=== PATIENT | male | born 1965 | race Caucasian/White ===

== ENCOUNTER 2018-12-11 08:23 | Outpatient (CLI) | payer MEDICARE ==
--- NOTE | 2018-12-11 13:20 | Nuclear Medicine Report ---
PARATHYROID SCAN HISTORY: Hypercalcemia, hyperparathyroidism COMPARISON: None TECHNIQUE: Following the intravenous administration of [id number], early and delayed anterior i mages of the neck and upper thorax were acquired. RADIOPHARMACEUTICAL: 20.0 mCi of [id number] FINDINGS: EARLY IMAGING: Diffuse symmetric physiologic thyroid activity. DELAYED IMAGING: Near complete symmetric washout from the normal thyroid tissue. No abnormal thoraci c activity. Additional Findings: None. IMPRESSION: 1. No significant abnormality. Signer Name: Aleksander Deng Jr, MD Signed: 12/11/2018 1:15 PM Workstation Name: [id number]
== END 2018-12-11 08:24 | disposition home or self-care (01) ==
LOC: NM 08:23
PROVIDERS: ATTEND Internal Medicine Nephrology
DX: E21.3 Hyperparathyroidism, unspecified (principal)
CPT/HCPCS: 78070; A9500

== ENCOUNTER 2021-06-01 11:37 | Inpatient (IN) | payer MEDICARE ==
[2021-06-01] MEDS ORDERED: CEFEPIME/NS 2 GM/100 ML 2 GM/100 ML BAG IV ONE (12:17)
--- NOTE | 2021-06-01 12:35 | Emergency Department Report ---
HPI - General Chief Complaint: Fever Time Seen by Provider: 06/01/21 12:12 - HPI HPI: 56-year-old male with history of hypertension, insulin-dependent diabetes mellitus, complete bilateral blindness, ESRD status post renal transplant 5 years ago on immunosuppression with mycophenolate 250 mg twice daily, prednisone 5 mg daily, and tacrolimus 3 mg in the morning and 4 mg in the afternoon presents with his son due to 2 days of urinary symptoms including dysuria and hesitancy as well as generalized weakness and fever/chills. He has also been having some mild lower abdominal pain as well. According to the the patient's son, he had a fever of 103 last night. The patient follows with Dr. Cole at [facility]. Other than the a forementioned symptoms, he denies any associated headache, back pain, chest pain, shortness of breath, nausea/vomiting , or any other complaints. He is fully vaccinated against COVID-19 and has received his booster. ED Past Medical Hx - Past Medical History Previous Medical History?: Yes Hx Hypertension: Yes Hx Diabetes: Yes Hx Renal Disease: Yes Additional medical history: ESRD s/p renal transplant - Surgical History Past Surgical History?: Yes Additional Surgical History: Renal transplant ED Review of Systems ROS: Stated complaint: FEVER CHILLS Other details as noted in HPI Comment: All other systems reviewed and negative Constitutional: chills, fever, weakness Eyes: denies: eye pain, eye discharge ENT: denies: throat pain, congestion Respiratory: denies: cough, shortness of breath Cardiovascular: denies: chest pain, palpitations Gastrointestinal: abdominal pain. denies: nausea, vomiting, diarrhea Genitourinary: dysuria, frequency, other (hesitancy). denies: hematuria Skin: denies: rash, lesions Neurological: denies: headache, weakness, numbness Physical Exam - Physical Exam Vital Signs: Vital Signs 06/01/21 06/01/21 11:39 12:10 Temperature 99.7 F H 99.5 F Pulse Rate 89 78 Respiratory 18 32 H Rate Blood Pressure 100/50 146/50 [Left] O2 Sat by Pulse 98 99 Oximetry Physical Exam: GENERAL: Well developed and well nourished. No acute distress HEAD: Normocephalic. No obvious signs of trauma. ENT: Dry mucous membranes. EYES: Eyes are only partially open. NECK: Supple. Full ROM is intact. Trachea is midline. LUNGS: Nonlabored breathing. Equal chest rise bilaterally. Clear to auscultation bilaterally. CARDIOVASCULAR: Regular rate and rhythm. No murmurs or rubs. VASCULAR: Cap refill < 2 seconds ABDOMEN: Abdomen is soft and nondistended. There is tenderness to palpation in the right lower quadrant of the abdomen without guarding or rebound tenderness. SKIN: Skin is warm and dry NEURO: Patient is awake, alert, and oriented. No facial asymmetry. No focal deficits. Normal motor and sensory exam throughout. Normal speech. MUSCULOSKELETAL: No obvious deformities. No significant tenderness. Normal ROM throughout. BACK/SPINE: No costovertebral angle tenderness. ED Course Vital Signs 06/01/21 06/01/21 11:39 12:10 Temperature 99.7 F H 99.5 F Pulse Rate 89 78 Respiratory 18 32 H Rate Blood Pressure 100/50 146/50 [Left] O2 Sat by Pulse 98 99 Oximetry ED Medical Decision Making - Lab Data Result diagrams: 06/01/21 12:53 06/01/21 12:53 Lab Results 06/01/21 06/01/21 06/01/21 Range/Units 12:35 12:53 12:53 WBC 10.2 (4.5-11.0) K/mm3 RBC 4.16 (3.65-5.03) M/mm3 Hgb 12.5 (11.8-15.2) gm/dl Hct 38.3 (35.5-45.6) % MCV 92 (84-94) fl MCH 30 (28-32) pg MCHC 33 (32-34) % RDW 13.8 (13.2-15.2) % Plt Count 74 L (140-440) K/mm3 Sodium (137-145) mmol/L Potassium (3.6-5.0) mmol/L Chloride (98-107) mmol/L Carbon Dioxide (22-30) mmol/L Anion Gap mmol/L BUN (9-20) mg/dL Creatinine (0.8-1.3) mg/dL Estimated GFR ml/min BUN/Creatinine Ratio % Glucose (75-100) mg/dL POC Glucose 99 (70-105) mg/dL Lactic Acid 2.40 H* (0.7-2.0) mmol/L Calcium (8.4-10.2) mg/dL Magnesium (1.7-2.3) mg/dL Total Bilirubin (0.1-1.2) mg/dL Direct Bilirubin (0-0.2) mg/dL Indirect Bilirubin mg/dL AST (5-40) units/L ALT (7-56) units/L Alkaline Phosphatase (35-129) units/L Troponin T (0.00-0.029) ng/mL Total Protein (6.3-8.2) g/dL Albumin (3.9-5) g/dL Albumin/Globulin Ratio % Lipase (13-60) units/L Urine Color (Yellow) Urine Turbidity (Clear) Urine pH (5.0-7.0) Ur Specific [place] (1.003-1.030) Urine Protein (Negative) mg/dL Urine Glucose (UA) (Negative) mg/dL Urine Ketones (Negative) mg/dL Urine Blood (Negative) Urine Nitrite (Negative) Urine Bilirubin (Negative) Urine Urobilinogen (<2.0) mg/dL Ur Leukocyte Esterase (Negative) Urine WBC (Auto) (0.0-6.0) /HPF Urine RBC (Auto) (0.0-6.0) /HPF U Epithel Cells (Auto) (0-13.0) /HPF Urine Bacteria (Auto) (Negative) /HPF Urine WBC Clumps /HPF Ur Transition Epith Cell /HPF Urine Mucus /HPF 06/01/21 06/01/21 06/01/21 Range/Units 12:53 12:53 14:40 WBC (4.5-11.0) K/mm3 RBC (3.65-5.03) M/mm3 Hgb (11.8-15.2) gm/dl Hct (35.5-45.6) % MCV (84-94) fl MCH (28-32) pg MCHC (32-34) % RDW (13.2-15.2) % Plt Count (140-440) K/mm3 Sodium 129 L (137-145) mmol/L Potassium 5.4 H (3.6-5.0) mmol/L Chloride 96.1 L (98-107) mmol/L Carbon Dioxide 18 L (22-30) mmol/L Anion Gap 20 mmol/L BUN 58 H (9-20) mg/dL Creatinine 3.8 H (0.8-1.3) mg/dL Estimated GFR 17 ml/min BUN/Creatinine Ratio 15 % Glucose 118 H (75-100) mg/dL POC Glucose (70-105) mg/dL Lactic Acid 2.00 (0.7-2.0) mmol/L Calcium 7.8 L (8.4-10.2) mg/dL Magnesium 1.30 L (1.7-2.3) mg/dL Total Bilirubin 0.70 (0.1-1.2) mg/dL Direct Bilirubin 0.2 (0-0.2) mg/dL Indirect Bilirubin 0.5 mg/dL AST 16 (5-40) units/L ALT 15 (7-56) units/L Alkaline Phosphatase 98 (35-129) units/L Troponin T 0.021 (0.00-0.029) ng/mL Total Protein 5.7 L (6.3-8.2) g/dL Albumin 3.3 L (3.9-5) g/dL Albumin/Globulin Ratio 1.4 % Lipase 6 L (13-60) units/L Urine Color (Yellow) Urine Turbidity (Clear) Urine pH (5.0-7.0) Ur Specific [place] (1.003-1.030) Urine Protein (Negative) mg/dL Urine Glucose (UA) (Negative) mg/dL Urine Ketones (Negative) mg/dL Urine Blood (Negative) Urine Nitrite (Negative) Urine Bilirubin (Negative) Urine Urobilinogen (<2.0) mg/dL Ur Leukocyte Esterase (Negative) Urine WBC (Auto) (0.0-6.0) /HPF Urine RBC (Auto) (0.0-6.0) /HPF U Epithel Cells (Auto) (0-13.0) /HPF Urine Bacteria (Auto) (Negative) /HPF Urine WBC Clumps /HPF Ur Transition Epith Cell /HPF Urine Mucus /HPF 06/01/21 06/01/21 06/01/21 Range/Units 14:40 16:17 Unknown WBC (4.5-11.0) K/mm3 RBC (3.65-5.03) M/mm3 Hgb (11.8-15.2) gm/dl Hct (35.5-45.6) % MCV (84-94) fl MCH (28-32) pg MCHC (32-34) % RDW (13.2-15.2) % Plt Count (140-440) K/mm3 Sodium (137-145) mmol/L Potassium (3.6-5.0) mmol/L Chloride (98-107) mmol/L Carbon Dioxide (22-30) mmol/L Anion Gap mmol/L BUN (9-20) mg/dL Creatinine (0.8-1.3) mg/dL Estimated GFR ml/min BUN/Creatinine Ratio % Glucose (75-100) mg/dL POC Glucose 175 H (70-105) mg/dL Lactic Acid (0.7-2.0) mmol/L Calcium (8.4-10.2) mg/dL Magnesium (1.7-2.3) mg/dL Total Bilirubin (0.1-1.2) mg/dL Direct Bilirubin (0-0.2) mg/dL Indirect Bilirubin mg/dL AST (5-40) units/L ALT (7-56) units/L Alkaline Phosphatase (35-129) units/L Troponin T 0.019 (0.00-0.029) ng/mL Total Protein (6.3-8.2) g/dL Albumin (3.9-5) g/dL Albumin/Globulin Ratio % Lipase (13-60) units/L Urine Color [place] (Yellow) Urine Turbidity Cloudy (Clear) Urine pH 5.0 (5.0-7.0) Ur Specific [place] 1.016 (1.003-1.030) Urine Protein 100 mg/dl (Negative) mg/dL Urine Glucose (UA) 50 (Negative) mg/dL Urine Ketones Neg (Negative) mg/dL Urine Blood Mod (Negative) Urine Nitrite Neg (Negative) Urine Bilirubin Neg (Negative) Urine Urobilinogen < 2.0 (<2.0) mg/dL Ur Leukocyte Esterase Lg (Negative) Urine WBC (Auto) > 182.0 H (0.0-6.0) /HPF Urine RBC (Auto) 24.0 (0.0-6.0) /HPF U Epithel Cells (Auto) 3.0 (0-13.0) /HPF Urine Bacteria (Auto) 1+ (Negative) /HPF Urine WBC Clumps 3+ /HPF Ur Transition Epith Cell 4 /HPF Urine Mucus Few /HPF - Radiology Data Radiology results: report reviewed - Medical Decision Making 56-year-old male with complex medical history including history of renal transplant on immunosuppression presenting with 2 days of urinary symptoms and fever/chills/malaise. On initial assessment he has low-grade fever of 99.7. The remainder of his vital signs are grossly within normal limits. Nonetheless, given his immunosuppressed state, I am concerned for possible sepsis. He has dry mucous membranes on exam and has tenderness to palpation of the right lower quadrant of the abdomen without guarding or rebound. The remainder of his ph ysical exam is grossly within normal limits. The full sepsis order set was initiated with labs and cultures as well as chest x-ray. I will administer broad-spectrum IV cefepime given the patient's immunosuppressed state. We will place a call to the patient's pattern maker programer at [place] to discuss further. 12:55 PM I spoke with Dr. Briceno who is covering for Dr. Cole. He agrees with current work-up with normal sepsis labs and cultures and agrees with IV cefepime treatment. He does come to this hospital and can provide further inpatient consultation once the patient is admitted Chest x-ray shows no acute abnormalities. There is no significant leukocytosis or anemia. However, there is th rombocytopenia with platelets of 74. Chemistry panel reveals several abnormalities including elevated creatinine of 3.8, BUN of 58, potassium of 5.4, and sodium of 129. Magnesium is low at 1.3. Lactate is elevated at 2.4 we will replete the magnesium. We will give 1.5 L of IV fluids and reach out to the patient's pattern maker programer to determine whether this represents new kidney dysfunction or whether this is his baseline At [address] Cole of nephrology. He was able to review the prabha mazariegoshari's past medical records which revealed the patient's baseline creatinine is 1.5. Therefore his current renal function represents acute renal failure. We discussed current management he agrees with what we have done. He will provide further inpatient recommendations. CT of the abdomen pelvis reveals only findings consistent with cystitis. I discussed with the patient and his son the results of the diagnostic studies and the diagnosis of urinary tract infection with cystitis as well as the need for admission for IV antibiotics given his immunosuppressed state. The patient and his son expressed understanding and agreement with this plan of care I spoke with Dr. Tiwari, the on-call hospitalist regarding the case and he accepts the patient for admission will assume care Critical care attestation.: If time is entered above; I have spent that time in minutes in the direct care of this critically ill patient, excluding procedure time. ED Disposition Clinical Impression: Acute renal failure, Sepsis, Urinary tract infection, Hypomagnesemia, Hyponatremia, Immunosuppressed status, Hypokalemia, Cystitis Disposition: 09 ADMITTED INPATIENT Is pt being admited?: Yes
--- NOTE | 2021-06-01 12:45 | XRay Report ---
CHEST 1 VIEW 06/01/2021 12:24 PM INDICATION / CLINICAL INFORMATION: fever/chills. COMPARISON: None available. FINDINGS: SUPPORT DEVICES: None. HEART / MEDIASTINUM: No significant abnormality. LUNGS / PLEURA: No significant pulmonary abnormality. No significant pleural effusion. No pneumothora x. ADDITIONAL FINDINGS: No significant additional findings. IMPRESSION: 1. No acute abnormality of the chest. Signer Name: Anthony Hester MD Signed: 06/01/2021 12:41 PM Workstation Name: [id number]
[2021-06-01] MEDS ORDERED: ACETAMINOPHEN 500 MG TAB PO ONE (12:49)
[2021-06-01 13:22] LABS: Bacteria,Urine 1+ /HPF (Negative); Bilirubin,Urine NEG (Negative); Blood,Urine MOD (Negative); Color,Urine Amber (Yellow); Mucus,Urine FEW /HPF; Urobilinogen,Urine < 2.0 mg/dL (<2.0)
[2021-06-01 13:26] LABS: WBC,Urine > 182.0 /HPF (0.0-6.0)
[2021-06-01 13:42] LABS: Albumin 3.3 g/dL (3.9-5); Bilirubin,Direct 0.2 mg/dL (0-0.2); Calcium 7.8 mg/dL (8.4-10.2)
[2021-06-01 13:50] LABS: Hematocrit 38.3 % (35.5-45.6); Hemoglobin 12.5 gm/dl (11.8-15.2); Mean Corpuscular HGB Conc 33 % (32-34); Mean Corpuscular Volume 92 fl (84-94); Red Blood Count 4.16 M/mm3 (3.65-5.03); Red Cell Distribution Width 13.8 % (13.2-15.2)
[2021-06-01 13:53] LABS: Platelet Count 74 K/mm3 (140-440)
[2021-06-01] MEDS ORDERED: MAGNESIUM SULFATE 2 GM/50 ML BAG IV ONE (13:58)
[2021-06-01] MEDS ORDERED: SODIUM CHLORIDE 0.9% 500 ML 500 ML IV ONE (14:20)
[2021-06-01] MEDS ORDERED: SODIUM CHLORIDE 0.45% 1000 ML 1,000 ML IV SCH (14:30)
--- NOTE | 2021-06-01 14:34 | Cat Scan Report ---
CT abdomen pelvis wo con INDICATION: sepsis, RLQ tenderness. COMPARISON: None TECHNIQUE: Abdominal and pelvic CT exam performed. All CT scans at this location are performed using CT dose reduction for ALARA by means of automated exposure control. FINDINGS: CT ABDOMEN and PELVIS: Lung Bases: No significant abnormality. Liver: No significant abnormality. Biliary: No significant abnormality. Spleen: No significant abnormality. Pancreas: No significant abnormality. Adrenals: No significant abnormality. Kidneys: End-stage renal atrophy. Right lower quadrant kidney transplant with iliac fossa.. No stones . Mild perinephric stranding. Bladder: Circumferential bladder wall thickening. Lymphatics: No lymphadenopathy. Vasculature: Diffuse arterial atherosclerosis likely related to underlying diabetes. Bowel: No significant abnormality. Normal appendix. Pelvis: No significant abnormality. Osseous Structures: No aggressive osseous lesion. Additional Findings: None IMPRESSION: 1. Bladder wall circumferentially thickened. This could be related to cystitis. Correlate with urinal ysis. 2. End-stage [place] renal atrophy with right lower quadrant renal transplant. Mild perinephric strand ing around the transplant is nonspecific and there is no comparison. Signer Name: Elroy Dangelo MD Signed: 06/01/2021 2:30 PM Workstation Name: [id number]
[2021-06-01] MEDS ORDERED: SODIUM CHLORIDE 0.45% 1000 ML IV SOLN IV SCH (15:00)
[2021-06-01] MEDS ORDERED: ONDANSETRON 4 MG/2 ML INJ IV ONE (17:02)
[2021-06-01] MEDS ORDERED: LACTATED RINGERS 1,000 ML IV ONE (17:02)
[2021-06-01 17:28] LABS: Band Neutrophils # (Manual) 2.8 K/mm3; Basophils % (Manual) 0 % (0.0-1.8); Eosinophils % (Manual) 0 % (0.0-4.3); Monocytes % (Manual) 0 % (0.0-7.3); Platelet Estimate Consistent w Auto; RBC Morphology Normal; Total Cells Counted 100
--- NOTE | 2021-06-01 18:28 | History and Physical Report ---
History of Present Illness Date of examination: 06/01/21 Date of admission: June 01, 2021 Chief complaint: High fever since last night History of present illness: 56-year-old Niuean-speaking male with history of hypertension, s/p renal transplant, insulin-dependent diabetes, bilateral blindness. Not on hemodialysis for renal transplant 5 years ago. Patient is on immunosuppressive drugs including mycophenolate and prednisone. Tacrolimus. Comes in for dysuria and hesitancy and fever. Also generalized weakness and fever and chills. Patient also having lower abdominal pain. As per the patient's son patient had a fever of 103 last night. Patient was also febrile while in the emergency room. 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 Patient is fully vaccinated against Covid. And also has received a booster. - Past Medical History --Previous Medical History?: Yes --Hypertension: Yes --Diabetes: Yes --Renal Disease: Yes --Additional medical history: ESRD s/p renal transplant - Surgical History --Past Surgical History?: Yes --Additional Surgical History: Renal transplant -Social history --blind in both eyes --Smoker alcohol - Family history HTN --Review of Systems ROS: Stated complaint: FEVER CHILLS Other details as noted in HPI Comment: All other systems reviewed and negative Constitutional: chills, fever, weakness Eyes: denies: eye pain, eye discharge ENT: denies: throat pain, congestion Respiratory: denies: cough, shortness of breath Cardiovascular: denies: chest pain, palpitations Gastrointestinal: abdominal pain. denies: nausea, vomiting, diarrhea Genitourinary: dysuria, frequency, other (hesitancy). denies: hematuria Skin: denies: rash, lesions Neurological: denies: headache, weakness, numbness Medications and Allergies Allergies Allergy/AdvReac Type Severity Reaction Status Date / Time adhesive tape Allergy Rash Verified 06/01/21 19:02 Active Meds: Active Medications Sodium Chloride (Nacl 0.45% 1000 Ml) 1,000 mls @ 999 mls/hr IV ONCE@1430 DAVID Stop: 06/01/21 20:00 Last Admin: 06/01/21 14:29 Dose: 999 mls/hr Exam - Constitutional Vitals: Temp Pulse Resp BP Pulse Ox 101.8 F H 90 34 H 90/50 96 06/01/21 16:28 06/01/21 16:28 06/01/21 16:28 06/01/21 16:28 06/01/21 16:28 General appearance: Present: no acute distress, well-nourished - EENT Eyes: Present: PERRL ENT: hearing intact, clear oral mucosa - Neck Neck: Present: supple, normal ROM - Respiratory Respiratory effort: normal Respiratory: bilateral: CTA - Cardiovascular Heart rate: 88 Rhythm: regular Heart Sounds: Present: S1 & S2. Absent: rub, click - Extremities Extremities: pulses symmetrical, No edema Peripheral Pulses: within normal limits - Abdominal General gastrointestinal: Present: soft, non-tender, non-distended, normal bowel sounds Male genitourinary: Present: normal - Integumentary Integumentary: Present: clear, warm, dry - Musculoskeletal Musculoskeletal: gait normal, strength equal bilaterally - Psychiatric Psychiatric: appropriate mood/affect, intact judgment & insight - Neurologic Neurologic: CNII-XII intact, moves all extremities HEART Score - HEART Score Troponin: Troponin T 0.019 ng/mL (0.00-0.029) 06/01/21 14:40 Results - Labs CBC & Chem 7: 06/02/21 05:13 06/02/21 05:13 Labs: Laboratory Last Values WBC 10.2 K/mm3 (4.5-11.0) 06/01/21 12:53 RBC 4.16 M/mm3 (3.65-5.03) 06/01/21 12:53 Hgb 12.5 gm/dl (11.8-15.2) 06/01/21 12:53 Hct 38.3 % (35.5-45.6) 06/01/21 12:53 MCV 92 fl (84-94) 06/01/21 12:53 MCH 30 pg (28-32) 06/01/21 12:53 MCHC 33 % (32-34) 06/01/21 12:53 RDW 13.8 % (13.2-15.2) 06/01/21 12:53 Plt Count 74 K/mm3 (140-440) L 06/01/21 12:53 Add Manual Diff Complete 06/01/21 12:53 Total Counted 100 06/01/21 12:53 Seg Neuts % (Manual) 72.0 % (40.0-70.0) H 06/01/21 12:53 Band Neutrophils % 27.0 % 06/01/21 12:53 Lymphocytes % (Manual) 1.0 % (13.4-35.0) L 06/01/21 12:53 Reactive Lymphs % (Man) 0 % 06/01/21 12:53 Monocytes % (Manual) 0 % (0.0-7.3) 06/01/21 12:53 Eosinophils % (Manual) 0 % (0.0-4.3) 06/01/21 12:53 Basophils % (Manual) 0 % (0.0-1.8) 06/01/21 12:53 Metamyelocytes % 0 % 06/01/21 12:53 Myelocytes % 0 % 06/01/21 12:53 Promyelocytes % 0 % 06/01/21 12:53 Blast Cells % 0 % 06/01/21 12:53 Nucleated RBC % Not Reportable 06/01/21 12:53 Seg Neutrophils # Man 7.3 K/mm3 (1.8-7.7) 06/01/21 12:53 Band Neutrophils # 2.8 K/mm3 06/01/21 12:53 Lymphocytes # (Manual) 0.1 K/mm3 (1.2-5.4) L 06/01/21 12:53 Abs React Lymphs (Man) 0.0 K/mm3 06/01/21 12:53 Monocytes # (Manual) 0.0 K/mm3 (0.0-0.8) 06/01/21 12:53 Eosinophils # (Manual) 0.0 K/mm3 (0.0-0.4) 06/01/21 12:53 Basophils # (Manual) 0.0 K/mm3 (0.0-0.1) 06/01/21 12:53 Metamyelocytes # 0.0 K/mm3 06/01/21 12:53 Myelocytes # 0.0 K/mm3 06/01/21 12:53 Promyelocytes # 0.0 K/mm3 06/01/21 12:53 Blast Cells # 0.0 K/mm3 06/01/21 12:53 WBC Morphology Not Reportable 06/01/21 12:53 Hypersegmented Neuts Not Reportable 06/01/21 12:53 Hyposegmented Neuts Not Reportable 06/01/21 12:53 Hypogranular Neuts Not Reportable 06/01/21 12:53 Smudge Cells Not Reportable 06/01/21 12:53 Toxic Granulation Not Reportable 06/01/21 12:53 Toxic Vacuolation Not Reportable 06/01/21 12:53 Dohle Bodies Not Reportable 06/01/21 12:53 Pelger-Huet Anomaly Not Reportable 06/01/21 12:53 Jen Rods Not Reportable 06/01/21 12:53 Platelet Estimate Consistent w auto 06/01/21 12:53 Clumped Platelets Not Reportable 06/01/21 12:53 Plt Clumps, EDTA Not Reportable 06/01/21 12:53 Large Platelets Not Reportable 06/01/21 12:53 Giant Platelets Not Reportable 06/01/21 12:53 Platelet Satelliting Not Reportable 06/01/21 12:53 Plt Morphology Comment Not Reportable 06/01/21 12:53 RBC Morphology Normal 06/01/21 12:53 Dimorphic RBCs Not Reportable 06/01/21 12:53 Polychromasia Not Reportable 06/01/21 12:53 Hypochromasia Not Reportable 06/01/21 12:53 Poikilocytosis Not Reportable 06/01/21 12:53 Anisocytosis Not Reportable 06/01/21 12:53 Microcytosis Not Reportable 06/01/21 12:53 Macrocytosis Not Reportable 06/01/21 12:53 Spherocytes Not Reportable 06/01/21 12:53 Pappenheimer Bodies Not Reportable 06/01/21 12:53 Sickle Cells Not Reportable 06/01/21 12:53 Target Cells Not Reportable 06/01/21 12:53 Tear Drop Cells Not Reportable 06/01/21 12:53 Ovalocytes Not Reportable 06/01/21 12:53 Helmet Cells Not Reportable 06/01/21 12:53 [place] Bodies Not Reportable 06/01/21 12:53 [place] Rings Not Reportable 06/01/21 12:53 Praveen Cells Not Reportable 06/01/21 12:53 Bite Cells Not Reportable 06/01/21 12:53 Crenated Cell Not Reportable 06/01/21 12:53 Elliptocytes Not Reportable 06/01/21 12:53 Acanthocytes (Spur) Not Reportable 06/01/21 12:53 Rouleaux Not Reportable 06/01/21 12:53 Hemoglobin C Crystals Not Reportable 06/01/21 12:53 Schistocytes Not Reportable 06/01/21 12:53 Malaria parasites Not Reportable 06/01/21 12:53 [place] Bodies Not Reportable 06/01/21 12:53 Hem Pathologist Commnt No 06/01/21 12:53 Sodium 129 mmol/L (137-145) L 06/01/21 12:53 Potassium 5.4 mmol/L (3.6-5.0) H 06/01/21 12:53 Chloride 96.1 mmol/L (98-107) L 06/01/21 12:53 Carbon Dioxide 18 mmol/L (22-30) L 06/01/21 12:53 Anion Gap 20 mmol/L 06/01/21 12:53 BUN 58 mg/dL (9-20) H 06/01/21 12:53 Creatinine 3.8 mg/dL (0.8-1.3) H 06/01/21 12:53 Estimated GFR 17 ml/min 06/01/21 12:53 BUN/Creatinine Ratio 15 % 06/01/21 12:53 Glucose 118 mg/dL (75-100) H 06/01/21 12:53 POC Glucose 175 mg/dL (70-105) H 06/01/21 16:17 Lactic Acid 2.00 mmol/L (0.7-2.0) 06/01/21 14:40 Calcium 7.8 mg/dL (8.4-10.2) L 06/01/21 12:53 Magnesium 1.30 mg/dL (1.7-2.3) L 06/01/21 12:53 Total Bilirubin 0.70 mg/dL (0.1-1.2) 06/01/21 12:53 Direct Bilirubin 0.2 mg/dL (0-0.2) 06/01/21 12:53 Indirect Bilirubin 0.5 mg/dL 06/01/21 12:53 AST 16 units/L (5-40) 06/01/21 12:53 ALT 15 units/L (7-56) 06/01/21 12:53 Alkaline Phosphatase 98 units/L (35-129) 06/01/21 12:53 Troponin T 0.019 ng/mL (0.00-0.029) 06/01/21 14:40 Total Protein 5.7 g/dL (6.3-8.2) L 06/01/21 12:53 Albumin 3.3 g/dL (3.9-5) L 06/01/21 12:53 Albumin/Globulin Ratio 1.4 % 06/01/21 12:53 Lipase 6 units/L (13-60) L 06/01/21 12:53 Urine Color Patience (Yellow) 06/01/21 Unknown Urine Turbidity Cloudy (Clear) 06/01/21 Unknown Urine pH 5.0 (5.0-7.0) 06/01/21 Unknown Ur Specific [place] 1.016 (1.003-1.030) 06/01/21 Unknown Urine Protein 100 mg/dl mg/dL (Negative) 06/01/21 Unknown Urine Glucose (UA) 50 mg/dL (Negative) 06/01/21 Unknown Urine Ketones Neg mg/dL (Negative) 06/01/21 Unknown Urine Blood Mod (Negative) 06/01/21 Unknown Urine Nitrite Neg (Negative) 06/01/21 Unknown Urine Bilirubin Neg (Negative) 06/01/21 Unknown Urine Urobilinogen < 2.0 mg/dL (<2.0) 06/01/21 Unknown Ur Leukocyte Esterase Lg (Negative) 06/01/21 Unknown Urine WBC (Auto) > 182.0 /HPF (0.0-6.0) H 06/01/21 Unknown Urine RBC (Auto) 24.0 /HPF (0.0-6.0) 06/01/21 Unknown U Epithel Cells (Auto) 3.0 /HPF (0-13.0) 06/01/21 Unknown Urine Bacteria (Auto) 1+ /HPF (Negative) 06/01/21 Unknown Urine WBC Clumps 3+ /HPF 06/01/21 Unknown Ur Transition Epith Cell 4 /HPF 06/01/21 Unknown Urine Mucus Few /HPF 06/01/21 Unknown Short CBC 06/01/21 06/02/21 Range/Units 12:53 05:13 WBC 10.2 7.0 (4.5-11.0) K/mm3 Hgb 12.5 12.3 (11.8-15.2) gm/dl Hct 38.3 38.3 (35.5-45.6) % Plt Count 74 L 47 L (140-440) K/mm3 BMP 06/01/21 06/02/21 12:53 05:13 Sodium 129 L 120 L D Potassium 5.4 H 6.1 H* Chloride 96.1 L 87.6 L Carbon Dioxide 18 L 17 L BUN 58 H 68 H Creatinine 3.8 H 4.2 H Glucose 118 H 337 H Calcium 7.8 L 7.3 L Cardiac Enzymes 06/01/21 06/01/21 Range/Units 12:53 14:40 Troponin T 0.021 0.019 (0.00-0.029) ng/mL Liver Function 06/01/21 06/02/21 Range/Units 12:53 05:13 Total Bilirubin 0.70 0.70 (0.1-1.2) mg/dL Direct Bilirubin 0.2 (0-0.2) mg/dL AST 16 38 (5-40) units/L ALT 15 32 (7-56) units/L Alkaline Phosphatase 98 160 H (35-129) units/L Albumin 3.3 L 3.1 L (3.9-5) g/dL Urine 06/01/21 Range/Units Unknown Urine Color Patience (Yellow) Urine pH 5.0 (5.0-7.0) Ur Specific [place] 1.016 (1.003-1.030) Urine Protein 100 mg/dl (Negative) mg/dL Urine Glucose (UA) 50 (Negative) mg/dL Microbiology: Microbiology 06/01/21 12:53 Peripheral/Venous Blood Culture - Preliminary Culture in Progress 06/01/21 12:53 Peripheral/Venous Blood Culture - Preliminary Culture in Progress - Imaging and Cardiology EKG: report reviewed Imaging and Cardiology: Chest x-ray No acute findings CT abdomen and pelvis Bladder wall circumferentially thickened. This could be related to cystitis. Correlate with urinalysis. End-stage chemehuevi renal atrophy with right lower quadrant renal transplant. Mild perinephric cyst stranding around the transplant is nonspecific and there is no comparison. Assessment and Plan Advance Directives: Yes (Full code) VTE prophylaxis?: Chemical Plan of care discussed with patient/family: Yes - Patient Problems (1) SIRS (systemic inflammatory response syndrome) Current Visit: Yes Status: Acute Plan to address problem: Clinical picture consistent with clinical systemic inflammatory response syndrome (2) Cystitis Current Visit: Yes Status: Acute Plan to address problem: Patient initiated on IV Rocephin at 1 g every 24 hours pending urine cultures (3) MYCHAL (acute kidney injury) Current Visit: Yes Status: Acute Plan to address problem: IV fluids for now Defer to nephrology Possible ATN (4) Fever Current Visit: Yes Status: Acute Qualifiers: Encounter type: initial encounter Plan to address problem: Blood cultures and urine culture is done Tylenol as needed (5) S/P renal autotransplant Current Visit: Yes Status: Chronic Plan to address problem: Continue mycophenolate tacrolimus and prednisone (6) CKD (chronic kidney disease) Current Visit: Yes Status: Chronic Qualifiers: Chronic kidney disease stage: unspecified stage Qualified Code(s): N18.9 - Chronic kidney disease, unspecified Plan to address problem: Baseline creatinine is not known No previous admissions Creatinine is 3.8 now Nephrology consulted (7) Hyponatremia Current Visit: Yes Status: Acute Plan to address problem: Normal saline for now Defer to nephrology (8) Hypomagnesemia Current Visit: Yes Status: Acute Plan to address problem: Supplemented (9) Hyperkalemia Current Visit: Yes Status: Acute Plan to address problem: IV calcium gluconate given (10) Hypocalcemia Current Visit: Yes Status: Chronic Plan to address problem: Supplemented (11) DVT prophylaxis Current Visit: Yes Status: Acute Plan to address problem: On heparin and GI prophylaxis (12) Advance care planning Current Visit: Yes Status: Acute Plan to address problem: Disease education conducted, care plan discussed, diagnosis discussed, prognosis discussed. Patient is full code. Patient acknowledges understanding and agreement with care plan. +30 minutes.
[2021-06-01] MEDS ORDERED: oxyCODONE /ACETAMINOPHEN 5-325MG TAB PO PRN (18:37)
[2021-06-01] MEDS ORDERED: ONDANSETRON 4 MG/2 ML INJ IV PRN (18:37)
[2021-06-01] MEDS ORDERED: ACETAMINOPHEN 325 MG TAB PO PRN (18:37)
--- NOTE | 2021-06-01 21:40 | Event Note ---
Appreciate nephrology consult- official consult will follow. Note MYCHAL in transplant kidney in setting of sepsis, lactic acidosis. Continue IVF, antibiotics, sepsis protocol per primary team for now
[2021-06-01] MEDS: HEPARIN 5,000 UNIT/1 ML VIAL SUB-Q SCH (22:46)
[2021-06-02] MEDS: cefTRIAXone/NS 1 GM/50 ML 1 GM/50 ML BAG IV SCH (02:39)
[2021-06-02 06:17] LABS: Hematocrit 38.3 % (35.5-45.6); Hemoglobin 12.3 gm/dl (11.8-15.2); Mean Corpuscular HGB Conc 32 % (32-34); Mean Corpuscular Volume 93 fl (84-94); Red Blood Count 4.13 M/mm3 (3.65-5.03)
[2021-06-02 06:29] LABS: Platelet Count 47 K/mm3 (140-440)
[2021-06-02 06:36] LABS: Albumin 3.1 g/dL (3.9-5); Calcium 7.3 mg/dL (8.4-10.2)
[2021-06-02] MEDS ORDERED: MAGNESIUM SULFATE 2 GM/50 ML BAG IV ONE (07:25)
[2021-06-02] MEDS ORDERED: CALCIUM GLUCONATE 2,000 MG in SODIUM CHLORIDE 0.9% 100 ML IV ONE (07:37)
[2021-06-02] MEDS ORDERED: SODIUM POLYSTYRENE 15 GM/60 ML ORAL LIQD PO ONE ×2 (07:38→13:00)
[2021-06-02] MEDS ORDERED: CALC GLUCONATE 1GM/NS 100 ML 1 GM/100 ML BAG IV SCH ×2 (08:00)
[2021-06-02] MEDS ORDERED: MYCOPHENOLATE 500 MG TAB PO SCH (08:00)
--- NOTE | 2021-06-02 08:45 | Consultation ---
History of Present Illness - Reason for Consult Consult date: 06/02/21 acute renal failure, other (transplant kidney) - History of Present Illness 56-year-old man with history of hypertension, s/p renal transplant in 2017, insulin-dependent diabetes, bilateral blindness who presents with sepsis, weakness, fever, chills. Patient is on immunosuppressive drugs including mycophenolate, Prograf, and prednisone. Follows with Dr. Cole for CKD/transplant care, initially transplanted at [place] per Dr. Nicole. Notes for past 3 days, has been having dysuria, hesitancy, fever, generalized wea kness. Patient is fully vaccinated against Covid. And also has received a booster. Baseline creatinine around 1.5 per clinic notes. - Past Medical History --Previous Medical History?: Yes --Hypertension: Yes --Diabetes: Yes --Renal Disease: Yes --Additional medical history: ESRD s/p renal transplant - Surgical History --Past Surgical History?: Yes --Additional Surgical History: Renal transplant -Social history --blind in both eyes --Smoker alcohol - Family history HTN Medications and Allergies Allergies Allergy/AdvReac Type Severity Reaction Status Date / Time adhesive tape Allergy Rash Verified 06/01/21 19:02 Active Meds: Active Medications Acetaminophen (Acetaminophen 325 Mg Tab) 650 mg PO Q4H PRN PRN Reason: Pain MILD(1-3)/Fever >100.5/AN Last Admin: 06/02/21 04:06 Dose: 650 mg Heparin Sodium (Porcine) (Heparin 5,000 Unit/1 Ml Vial) 5,000 unit SUB-Q Q12HR DAVID Last Admin: 06/01/21 22:46 Dose: 5,000 unit Hydromorphone HCl (Hydromorphone 1 Mg/1 Ml Inj) 0.5 mg IV Q3H PRN PRN Reason: Pain , Severe (7-10) Sodium Chloride (Nacl 0.9% 1000 Ml) 1,000 mls @ 75 mls/hr IV DIRECT DAVID Ceftriaxone Sodium (Rocephin/Ns 1 Gm/50 Ml) 1 gm in 50 mls @ 100 mls/hr IV Q24H DAVID; Protocol Last Admin: 06/02/21 02:39 Dose: 100 mls/hr Magnesium Sulfate (Magnesium Sulfate 2gm/50ml) 2 gm in 50 mls @ 25 mls/hr IV ONCE ONE Stop: 06/02/21 09:24 CALC GLUCONATE 1GM/NS 100 ML (Calcium Gluonate/Ns 1,000mg/100ml) 1 gm in 100 mls @ 300 mls/hr IV Q10MIN DAVID Stop: 06/03/21 08:19 Multivitamins/Minerals (Calcium Carb/Vit D3/Minerals 600 Mg/800 Units Tab) 1 each PO BID [facility] Mycophenolate Mofetil (Mycophenolate 500 Mg Tab) 250 mg PO BID DAVID Ondansetron HCl (Ondansetron 4 Mg/2 Ml Inj) 4 mg IV Q8H PRN PRN Reason: Nausea And Vomiting Last Admin: 06/02/21 02:55 Dose: 4 mg Oxycodone/Acetaminophen (Oxycodone /Acetaminophen 5-325mg Tab) 1 tab PO Q6H PRN PRN Reason: Pain, Moderate (4-6) Last Admin: 06/01/21 22:56 Dose: 1 tab Prednisone (Prednisone 5 Mg Tab) 5 mg PO QDAY [facility] Sodium Chloride (Sodium Chloride 0.9% 10 Ml Flush Syringe) 10 ml IV BID [facility] Sodium Chloride (Sodium Chloride 0.9% 10 Ml Flush Syringe) 10 ml IV PRN PRN PRN Reason: LINE FLUSH Tacrolimus (Tacrolimus 1 Mg Cap) 3 mg PO Q12HR [facility] Review of Systems All systems: negative (as per HPI) Exam - Vital Signs Vital signs: Vital Signs Temp Pulse Resp BP Pulse Ox 99.7 F H 89 18 100/50 98 06/01/21 11:39 06/01/21 11:39 06/01/21 11:39 06/01/21 11:39 06/01/21 11:39 - Physical Exam Narrative exam: Constitutional: no acute distress, blind Head: NC/AT Neck: supple Lungs: clear to auscultation CV: RRR, no M/R/G Abdomen: soft, non-tender, bowel sounds present Back: nontender Extremities: no edema, pulses WNL Skin: intact Neuro: no focal deficits, alert and oriented x4 Results - Lab Results 06/02/21 05:13 06/02/21 05:13 Most recent lab results Calcium 7.3 mg/dL (8.4-10.2) L 06/02/21 05:13 Magnesium 1.30 mg/dL (1.7-2.3) L 06/01/21 12:53 Assessment and Plan # Acute Kidney Injury in setting of CKD, Transplant: creatinine at baseline around 1.5, 3.8->4.2 this AM. Suspect MYCHAL due to tubular injury in setting of UTI, sepsis. Have to consider other etiologies as well, as well as rejection but given clinical scenario less likely. Has been taking his immunosuppressants per report - IVF as tolerated - maintain MAP>70 - urinalysis with blood/protein in setting of likely UTI- check serologies, UP/C - cystitis, sepsis management per primary - reviewed imaging, no acute kidney changes noted - continue tacrolimus, prednisone for home dosing- check tacrolimus level in AM, pending - continue mycophenolate for now- may be contributing to low serum magnesium, infection- stop if sepsis criteria ongoing or cultures positive - I/Os - no immediate need for kidney biopsy or renal replacement therapy - medically management of electrolytes - if renal indices are not improving with supportive measures, will discuss with transplant nephrology team on 06/04 for recommendations from transplant standpoint # Hyperkalemia: K 6.1 this AM, was 5.4 last night- medical management for now, may be related to MYCHAL vs prograf toxicity # Hyponatremia: sodium 129->120 with IVF, initially thought due to dehydration but both K/Na changes may be related to hyperglycemia (glucose 337) - check cortisol - check urine studies # Hypomagnesemia, Hypocalcemia: replete # Metabolic Acidosis: initially with high lactate. HCO3 at 17 this AM, hold repletion given worsening hypocalcemia (note low albumin) # UTI, SIRS, Fever: on antibiotics, cultures pending
[2021-06-02 11:28] LABS: Band Neutrophils # (Manual) 0.4 K/mm3; Basophils % (Manual) 0 % (0.0-1.8); Eosinophils % (Manual) 0 % (0.0-4.3); Myelocytes # (Manual) 0.1 K/mm3; Total Cells Counted 100
[2021-06-02 11:29] LABS: Platelet Estimate Consistent w Auto; RBC Morphology Normal
--- NOTE | 2021-06-02 11:35 | Progress Note ---
Assessment and Plan Assessment and plan: Chest x-ray No acute findings CT abdomen and pelvis Bladder wall circumferentially thickened. This could be related to cystitis. Correlate with urinalysis. 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 Mild perinephric cyst stranding around the transplant is nonspecific and there is no comparison. --Hyperkalemia/potassium 6.1 Current Visit: Yes Status: Acute Received IV calcium gluconate and Kayexalate Closely monitor electrolytes nephrology following --CKD (chronic kidney disease) Current Visit: Yes Status: Chronic Baseline creatinine is not known No previous admissions Creatinine is 3.8 now Nephrology consulted --Hyponatremia Current Visit: Yes Status: Acute Closely monitor, normal saline Nephrology following -- Hypomagnesemia Current Visit: Yes Status: Acute Replenish mag sulfate per protocol, monitor electrolytes -- SIRS (systemic inflammatory response syndrome) Current Visit: Yes Status: Acute Clinical picture consistent with clinical systemic inflammatory response syndrome --Acute cystitis Current Visit: Yes Status: Acute Patient initiated on IV Rocephin at 1 g every 24 hours pending urine cultures --MYCHAL (acute kidney injury) Current Visit: Yes Status: Acute IV fluids for now Defer to nephrology Possible ATN -- Fever Current Visit: Yes Status: Acute Blood cultures and urine culture is done Tylenol as needed --S/P renal autotransplant Current Visit: Yes Status: Chronic Continue mycophenolate tacrolimus and prednisone --Hypocalcemia Current Visit: Yes Status: Chronic Supplemented --DVT prophylaxis Current Visit: Yes Status: Acute On heparin and GI prophylaxis -- Advance care planning Current Visit: Yes Status: Acute Disease education conducted, care plan discussed, diagnosis discussed, prognosis discussed. Patient is full code. Patient acknowledges understanding and agreement with care plan. +30 minutes. 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 recommendations noted History Interval history: I have seen and examined the patient at the bedside Patient's chart and medications reviewed Hospitalist Physical - Constitutional Vitals: Temp Pulse Resp BP Pulse Ox 98.5 F 92 H 18 127/24 96 06/02/21 07:39 06/02/21 07:39 06/02/21 07:39 06/02/21 07:39 06/02/21 07:39 General appearance: Present: no acute distress, well-nourished - EENT Eyes: Present: PERRL, EOM intact - Neck Neck: Present: supple, normal ROM - Cardiovascular Rhythm: regular Heart Sounds: Present: S1 & S2 - Extremities Extremities: no ischemia, No edema - Abdominal General gastrointestinal: soft, non-tender, non-distended, normal bowel sounds - Integumentary Integumentary: Present: clear, warm - Psychiatric Psychiatric: appropriate mood/affect, cooperative - Neurologic Neurologic: CNII-XII intact, moves all extremities HEART Score - HEART Score Troponin: Troponin T 0.019 ng/mL (0.00-0.029) 06/01/21 14:40 Results - Labs CBC & Chem 7: 06/02/21 05:13 06/02/21 05:13 Labs: Laboratory Last Values WBC 7.0 K/mm3 (4.5-11.0) 06/02/21 05:13 RBC 4.13 M/mm3 (3.65-5.03) 06/02/21 05:13 Hgb 12.3 gm/dl (11.8-15.2) 06/02/21 05:13 Hct 38.3 % (35.5-45.6) 06/02/21 05:13 MCV 93 fl (84-94) 06/02/21 05:13 MCH 30 pg (28-32) 06/02/21 05:13 MCHC 32 % (32-34) 06/02/21 05:13 RDW 14.0 % (13.2-15.2) 06/02/21 05:13 Plt Count 47 K/mm3 (140-440) L 06/02/21 05:13 Add Manual Diff Complete 06/02/21 05:13 Total Counted 100 06/02/21 05:13 Seg Neutrophils % Vegetable Tester 06/02/21 05:13 Seg Neuts % (Manual) 79.0 % (40.0-70.0) H 06/02/21 05:13 Band Neutrophils % 6.0 % 06/02/21 05:13 Lymphocytes % (Manual) 2.0 % (13.4-35.0) L 06/02/21 05:13 Reactive Lymphs % (Man) 0 % 06/02/21 05:13 Monocytes % (Manual) 4.0 % (0.0-7.3) 06/02/21 05:13 Eosinophils % (Manual) 0 % (0.0-4.3) 06/02/21 05:13 Basophils % (Manual) 0 % (0.0-1.8) 06/02/21 05:13 Metamyelocytes % 8.0 % 06/02/21 05:13 Myelocytes % 1.0 % 06/02/21 05:13 Promyelocytes % 0 % 06/02/21 05:13 Blast Cells % 0 % 06/02/21 05:13 Nucleated RBC % Not Reportable 06/02/21 05:13 Seg Neutrophils # Man 5.5 K/mm3 (1.8-7.7) 06/02/21 05:13 Band Neutrophils # 0.4 K/mm3 06/02/21 05:13 Lymphocytes # (Manual) 0.1 K/mm3 (1.2-5.4) L 06/02/21 05:13 Abs React Lymphs (Man) 0.0 K/mm3 06/02/21 05:13 Monocytes # (Manual) 0.3 K/mm3 (0.0-0.8) 06/02/21 05:13 Eosinophils # (Manual) 0.0 K/mm3 (0.0-0.4) 06/02/21 05:13 Basophils # (Manual) 0.0 K/mm3 (0.0-0.1) 06/02/21 05:13 Metamyelocytes # 0.6 K/mm3 06/02/21 05:13 Myelocytes # 0.1 K/mm3 06/02/21 05:13 Promyelocytes # 0.0 K/mm3 06/02/21 05:13 Blast Cells # 0.0 K/mm3 06/02/21 05:13 WBC Morphology Not Reportable 06/02/21 05:13 Hypersegmented Neuts Not Reportable 06/02/21 05:13 Hyposegmented Neuts Not Reportable 06/02/21 05:13 Hypogranular Neuts Not Reportable 06/02/21 05:13 Smudge Cells Not Reportable 06/02/21 05:13 Toxic Granulation Not Reportable 06/02/21 05:13 Toxic Vacuolation Not Reportable 06/02/21 05:13 Dohle Bodies Not Reportable 06/02/21 05:13 Pelger-Huet Anomaly Not Reportable 06/02/21 05:13 Jen Rods Not Reportable 06/02/21 05:13 Platelet Estimate Consistent w auto 06/02/21 05:13 Clumped Platelets Not Reportable 06/02/21 05:13 Plt Clumps, EDTA Not Reportable 06/02/21 05:13 Large Platelets Not Reportable 06/02/21 05:13 Giant Platelets Not Reportable 06/02/21 05:13 Platelet Satelliting Not Reportable 06/02/21 05:13 Plt Morphology Comment Not Reportable 06/02/21 05:13 RBC Morphology Normal 06/02/21 05:13 Dimorphic RBCs Not Reportable 06/02/21 05:13 Polychromasia Not Reportable 06/02/21 05:13 Hypochromasia Not Reportable 06/02/21 05:13 Poikilocytosis Not Reportable 06/02/21 05:13 Anisocytosis Not Reportable 06/02/21 05:13 Microcytosis Not Reportable 06/02/21 05:13 Macrocytosis Not Reportable 06/02/21 05:13 Spherocytes Not Reportable 06/02/21 05:13 Pappenheimer Bodies Not Reportable 06/02/21 05:13 Sickle Cells Not Reportable 06/02/21 05:13 Target Cells Not Reportable 06/02/21 05:13 Tear Drop Cells Not Reportable 06/02/21 05:13 Ovalocytes Not Reportable 06/02/21 05:13 Helmet Cells Not Reportable 06/02/21 05:13 [place] Bodies Not Reportable 06/02/21 05:13 [place] Rings Not Reportable 06/02/21 05:13 [place] Cells Not Reportable 06/02/21 05:13 Bite Cells Not Reportable 06/02/21 05:13 Crenated Cell Not Reportable 06/02/21 05:13 Elliptocytes Not Reportable 06/02/21 05:13 Acanthocytes (Spur) Not Reportable 06/02/21 05:13 Rouleaux Not Reportable 06/02/21 05:13 Hemoglobin C Crystals Not Reportable 06/02/21 05:13 Schistocytes Not Reportable 06/02/21 05:13 Malaria parasites Not Reportable 06/02/21 05:13 [place] Bodies Not Reportable 06/02/21 05:13 Hem Pathologist Commnt No 06/02/21 05:13 Sodium 120 mmol/L (137-145) L D 06/02/21 05:13 Potassium 6.1 mmol/L (3.6-5.0) H* 06/02/21 05:13 Chloride 87.6 mmol/L (98-107) L 06/02/21 05:13 Carbon Dioxide 17 mmol/L (22-30) L 06/02/21 05:13 Anion Gap 22 mmol/L 06/02/21 05:13 BUN 68 mg/dL (9-20) H 06/02/21 05:13 Creatinine 4.2 mg/dL (0.8-1.3) H 06/02/21 05:13 Estimated GFR 15 ml/min 06/02/21 05:13 BUN/Creatinine Ratio 16 % 06/02/21 05:13 Glucose 337 mg/dL (75-100) H 06/02/21 05:13 POC Glucose 303 mg/dL (70-105) H 06/02/21 07:30 Lactic Acid 2.00 mmol/L (0.7-2.0) 06/01/21 14:40 Calcium 7.3 mg/dL (8.4-10.2) L 06/02/21 05:13 Magnesium 1.30 mg/dL (1.7-2.3) L 06/01/21 12:53 Total Bilirubin 0.70 mg/dL (0.1-1.2) 06/02/21 05:13 Direct Bilirubin 0.2 mg/dL (0-0.2) 06/01/21 12:53 Indirect Bilirubin 0.5 mg/dL 06/01/21 12:53 AST 38 units/L (5-40) 06/02/21 05:13 ALT 32 units/L (7-56) 06/02/21 05:13 Alkaline Phosphatase 160 units/L (35-129) H 06/02/21 05:13 Troponin T 0.019 ng/mL (0.00-0.029) 06/01/21 14:40 Total Protein 5.4 g/dL (6.3-8.2) L 06/02/21 05:13 Albumin 3.1 g/dL (3.9-5) L 06/02/21 05:13 Albumin/Globulin Ratio 1.3 % 06/02/21 05:13 Lipase 6 units/L (13-60) L 06/01/21 12:53 Urine Color Patience (Yellow) 06/01/21 Unknown Urine Turbidity Cloudy (Clear) 06/01/21 Unknown Urine pH 5.0 (5.0-7.0) 06/01/21 Unknown Ur Specific [place] 1.016 (1.003-1.030) 06/01/21 Unknown Urine Protein 100 mg/dl mg/dL (Negative) 06/01/21 Unknown Urine Glucose (UA) 50 mg/dL (Negative) 06/01/21 Unknown Urine Ketones Neg mg/dL (Negative) 06/01/21 Unknown Urine Blood Mod (Negative) 06/01/21 Unknown Urine Nitrite Neg (Negative) 06/01/21 Unknown Urine Bilirubin Neg (Negative) 06/01/21 Unknown Urine Urobilinogen < 2.0 mg/dL (<2.0) 06/01/21 Unknown Ur Leukocyte Esterase Lg (Negative) 06/01/21 Unknown Urine WBC (Auto) > 182.0 /HPF (0.0-6.0) H 06/01/21 Unknown Urine RBC (Auto) 24.0 /HPF (0.0-6.0) 06/01/21 Unknown U Epithel Cells (Auto) 3.0 /HPF (0-13.0) 06/01/21 Unknown Urine Bacteria (Auto) 1+ /HPF (Negative) 06/01/21 Unknown Urine WBC Clumps 3+ /HPF 06/01/21 Unknown Ur Transition Epith Cell 4 /HPF 06/01/21 Unknown Urine Mucus Few /HPF 06/01/21 Unknown Microbiology: Microbiology 06/01/21 Unknown Urine,Clean Catch Urine Culture - Preliminary Gram Negative Carlos 06/01/21 12:53 Peripheral/Venous Blood Culture - Preliminary Culture in Progress 06/01/21 12:53 Peripheral/Venous Blood Culture - Preliminary Culture in Progress Active Medications - Current Medications Current Medications: Generic Name Dose Route Start Last Admin Trade Name Freq PRN Reason Stop Dose Admin Acetaminophen 650 mg 06/01/21 18:37 06/02/21 04:06 Acetaminophen 325 Mg Tab PO 650 mg Q4H PRN Administration Pain MILD(1-3)/Fever >100.5/AN Heparin Sodium (Porcine) 5,000 unit 06/01/21 22:00 06/01/21 22:46 Heparin 5,000 Unit/1 Ml Vial SUB-Q 5,000 unit Q12HR DAVID Administration Hydromorphone HCl 0.5 mg 06/01/21 18:45 Hydromorphone 1 Mg/1 Ml Inj IV Q3H PRN Pain , Severe (7-10) Sodium Chloride 1,000 mls @ 75 mls/hr 06/01/21 18:45 Nacl 0.9% 1000 Ml IV DIRECT [facility] Ceftriaxone Sodium 1 gm in 50 mls @ 100 mls/hr 06/02/21 00:00 06/02/21 02:39 Rocephin/Ns 1 Gm/50 Ml IV 100 mls/hr Q24H [facility] Administration Protocol CALC GLUCONATE 1GM/NS 100 ML 1 gm in 100 mls @ 300 mls/hr 06/02/21 08:00 Calcium Gluonate/Ns 1,000mg/100ml IV 06/03/21 08:19 Q10MIN [facility] Multivitamins/Minerals 1 each 06/02/21 10:00 Calcium Carb/Vit D3/Minerals 600 Mg/800 Units Tab PO BID [facility] Ondansetron HCl 4 mg 06/01/21 18:37 06/02/21 02:55 Ondansetron 4 Mg/2 Ml Inj IV 4 mg Q8H PRN Administration Nausea And Vomiting Oxycodone/Acetaminophen 1 tab 06/01/21 18:37 06/01/21 22:56 Oxycodone /Acetaminophen 5-325mg Tab PO 1 tab Q6H PRN Administration Pain, Moderate (4-6) Prednisone 5 mg 06/02/21 10:00 Prednisone 5 Mg Tab PO QDAY [facility] Sodium Chloride 10 ml 06/01/21 22:00 Sodium Chloride 0.9% 10 Ml Flush Syringe IV BID [facility] Sodium Chloride 10 ml 06/01/21 18:37 Sodium Chloride 0.9% 10 Ml Flush Syringe IV PRN PRN LINE FLUSH Tacrolimus 3 mg 06/02/21 10:00 Tacrolimus 1 Mg Cap PO Q12HR [facility]
[2021-06-02] MEDS: HYDROmorphone 1 MG/1 ML INJ IV PRN ×2 (11:48→16:07)
[2021-06-02] MEDS: HEPARIN 5,000 UNIT/1 ML VIAL SUB-Q SCH (11:49)
[2021-06-02] MEDS: CALCIUM CARB/VIT D3/MINERALS 600 MG/800 UNITS TAB PO SCH ×2 (11:50→22:31)
[2021-06-02] MEDS: predniSONE 5 MG TAB PO SCH (11:50)
[2021-06-02] MEDS: TACROLIMUS 1 MG CAP PO SCH ×2 (12:10→22:32)
[2021-06-02 12:17] LABS: Hepatitis B Surface Antigen Non-Reactive (Negative); Hepatitis C Virus Antibody Non-Reactive (NonReactive)
[2021-06-02] MEDS: ONDANSETRON 4 MG/2 ML INJ IV PRN (12:52)
[2021-06-02 14:33] LABS: Osmolality,Urine 318 Mosm/kg
--- NOTE | 2021-06-02 15:38 | Progress Note ---
Hospitalist Physical - Constitutional Vitals: Temp Pulse Resp BP Pulse Ox 99.3 F 89 18 129/27 99 06/02/21 12:06 06/02/21 12:06 06/02/21 15:00 06/02/21 12:06 06/02/21 15:00 General appearance: Present: no acute distress, well-nourished HEART Score - HEART Score Troponin: Troponin T 0.019 ng/mL (0.00-0.029) 06/01/21 14:40 Results - Labs CBC & Chem 7: 06/02/21 05:13 06/02/21 05:13 Labs: Laboratory Last Values WBC 7.0 K/mm3 (4.5-11.0) 06/02/21 05:13 RBC 4.13 M/mm3 (3.65-5.03) 06/02/21 05:13 Hgb 12.3 gm/dl (11.8-15.2) 06/02/21 05:13 Hct 38.3 % (35.5-45.6) 06/02/21 05:13 MCV 93 fl (84-94) 06/02/21 05:13 MCH 30 pg (28-32) 06/02/21 05:13 MCHC 32 % (32-34) 06/02/21 05:13 RDW 14.0 % (13.2-15.2) 06/02/21 05:13 Plt Count 47 K/mm3 (140-440) L 06/02/21 05:13 Add Manual Diff Complete 06/02/21 05:13 Total Counted 100 06/02/21 05:13 Seg Neutrophils % Hose Inspector And Patcher 06/02/21 05:13 Seg Neuts % (Manual) 79.0 % (40.0-70.0) H 06/02/21 05:13 Band Neutrophils % 6.0 % 06/02/21 05:13 Lymphocytes % (Manual) 2.0 % (13.4-35.0) L 06/02/21 05:13 Reactive Lymphs % (Man) 0 % 06/02/21 05:13 Monocytes % (Manual) 4.0 % (0.0-7.3) 06/02/21 05:13 Eosinophils % (Manual) 0 % (0.0-4.3) 06/02/21 05:13 Basophils % (Manual) 0 % (0.0-1.8) 06/02/21 05:13 Metamyelocytes % 8.0 % 06/02/21 05:13 Myelocytes % 1.0 % 06/02/21 05:13 Promyelocytes % 0 % 06/02/21 05:13 Blast Cells % 0 % 06/02/21 05:13 Nucleated RBC % Not Reportable 06/02/21 05:13 Seg Neutrophils # Man 5.5 K/mm3 (1.8-7.7) 06/02/21 05:13 Band Neutrophils # 0.4 K/mm3 06/02/21 05:13 Lymphocytes # (Manual) 0.1 K/mm3 (1.2-5.4) L 06/02/21 05:13 Abs React Lymphs (Man) 0.0 K/mm3 06/02/21 05:13 Monocytes # (Manual) 0.3 K/mm3 (0.0-0.8) 06/02/21 05:13 Eosinophils # (Manual) 0.0 K/mm3 (0.0-0.4) 06/02/21 05:13 Basophils # (Manual) 0.0 K/mm3 (0.0-0.1) 06/02/21 05:13 Metamyelocytes # 0.6 K/mm3 06/02/21 05:13 Myelocytes # 0.1 K/mm3 06/02/21 05:13 Promyelocytes # 0.0 K/mm3 06/02/21 05:13 Blast Cells # 0.0 K/mm3 06/02/21 05:13 WBC Morphology Not Reportable 06/02/21 05:13 Hypersegmented Neuts Not Reportable 06/02/21 05:13 Hyposegmented Neuts Not Reportable 06/02/21 05:13 Hypogranular Neuts Not Reportable 06/02/21 05:13 Smudge Cells Not Reportable 06/02/21 05:13 Toxic Granulation Not Reportable 06/02/21 05:13 Toxic Vacuolation Not Reportable 06/02/21 05:13 Dohle Bodies Not Reportable 06/02/21 05:13 Pelger-Huet Anomaly Not Reportable 06/02/21 05:13 Jen Rods Not Reportable 06/02/21 05:13 Platelet Estimate Consistent w auto 06/02/21 05:13 Clumped Platelets Not Reportable 06/02/21 05:13 Plt Clumps, EDTA Not Reportable 06/02/21 05:13 Large Platelets Not Reportable 06/02/21 05:13 Giant Platelets Not Reportable 06/02/21 05:13 Platelet Satelliting Not Reportable 06/02/21 05:13 Plt Morphology Comment Not Reportable 06/02/21 05:13 RBC Morphology Normal 06/02/21 05:13 Dimorphic RBCs Not Reportable 06/02/21 05:13 Polychromasia Not Reportable 06/02/21 05:13 Hypochromasia Not Reportable 06/02/21 05:13 Poikilocytosis Not Reportable 06/02/21 05:13 Anisocytosis Not Reportable 06/02/21 05:13 Microcytosis Not Reportable 06/02/21 05:13 Macrocytosis Not Reportable 06/02/21 05:13 Spherocytes Not Reportable 06/02/21 05:13 Pappenheimer Bodies Not Reportable 06/02/21 05:13 Sickle Cells Not Reportable 06/02/21 05:13 Target Cells Not Reportable 06/02/21 05:13 Tear Drop Cells Not Reportable 06/02/21 05:13 Ovalocytes Not Reportable 06/02/21 05:13 Helmet Cells Not Reportable 06/02/21 05:13 [place] Bodies Not Reportable 06/02/21 05:13 [place] Rings Not Reportable 06/02/21 05:13 [place] Cells Not Reportable 06/02/21 05:13 Bite Cells Not Reportable 06/02/21 05:13 Crenated Cell Not Reportable 06/02/21 05:13 Elliptocytes Not Reportable 06/02/21 05:13 Acanthocytes (Spur) Not Reportable 06/02/21 05:13 Rouleaux Not Reportable 06/02/21 05:13 Hemoglobin C Crystals Not Reportable 06/02/21 05:13 Schistocytes Not Reportable 06/02/21 05:13 Malaria parasites Not Reportable 06/02/21 05:13 [place] Bodies Not Reportable 06/02/21 05:13 Hem Pathologist Commnt No 06/02/21 05:13 Sodium 120 mmol/L (137-145) L D 06/02/21 05:13 Potassium 6.1 mmol/L (3.6-5.0) H* 06/02/21 05:13 Chloride 87.6 mmol/L (98-107) L 06/02/21 05:13 Carbon Dioxide 17 mmol/L (22-30) L 06/02/21 05:13 Anion Gap 22 mmol/L 06/02/21 05:13 BUN 68 mg/dL (9-20) H 06/02/21 05:13 Creatinine 4.2 mg/dL (0.8-1.3) H 06/02/21 05:13 Estimated GFR 15 ml/min 06/02/21 05:13 BUN/Creatinine Ratio 16 % 06/02/21 05:13 Glucose 337 mg/dL (75-100) H 06/02/21 05:13 POC Glucose 338 mg/dL (70-105) H 06/02/21 12:04 Lactic Acid 2.00 mmol/L (0.7-2.0) 06/01/21 14:40 Calcium 7.3 mg/dL (8.4-10.2) L 06/02/21 05:13 Magnesium 1.30 mg/dL (1.7-2.3) L 06/01/21 12:53 Total Bilirubin 0.70 mg/dL (0.1-1.2) 06/02/21 05:13 Direct Bilirubin 0.2 mg/dL (0-0.2) 06/01/21 12:53 Indirect Bilirubin 0.5 mg/dL 06/01/21 12:53 AST 38 units/L (5-40) 06/02/21 05:13 ALT 32 units/L (7-56) 06/02/21 05:13 Alkaline Phosphatase 160 units/L (35-129) H 06/02/21 05:13 Troponin T 0.019 ng/mL (0.00-0.029) 06/01/21 14:40 Total Protein 5.4 g/dL (6.3-8.2) L 06/02/21 05:13 Albumin 3.1 g/dL (3.9-5) L 06/02/21 05:13 Albumin/Globulin Ratio 1.3 % 06/02/21 05:13 Lipase 6 units/L (13-60) L 06/01/21 12:53 Urine Color [place] (Yellow) 06/01/21 Unknown Urine Turbidity Cloudy (Clear) 06/01/21 Unknown Urine pH 5.0 (5.0-7.0) 06/01/21 Unknown Ur Specific [place] 1.016 (1.003-1.030) 06/01/21 Unknown Urine Protein 100 mg/dl mg/dL (Negative) 06/01/21 Unknown Urine Glucose (UA) 50 mg/dL (Negative) 06/01/21 Unknown Urine Ketones Neg mg/dL (Negative) 06/01/21 Unknown Urine Blood Mod (Negative) 06/01/21 Unknown Urine Nitrite Neg (Negative) 06/01/21 Unknown Urine Bilirubin Neg (Negative) 06/01/21 Unknown Urine Urobilinogen < 2.0 mg/dL (<2.0) 06/01/21 Unknown Ur Leukocyte Esterase Lg (Negative) 06/01/21 Unknown Urine WBC (Auto) > 182.0 /HPF (0.0-6.0) H 06/01/21 Unknown Urine RBC (Auto) 24.0 /HPF (0.0-6.0) 06/01/21 Unknown U Epithel Cells (Auto) 3.0 /HPF (0-13.0) 06/01/21 Unknown Urine Bacteria (Auto) 1+ /HPF (Negative) 06/01/21 Unknown Urine WBC Clumps 3+ /HPF 06/01/21 Unknown Ur Transition Epith Cell 4 /HPF 06/01/21 Unknown Urine Mucus Few /HPF 06/01/21 Unknown Urine Osmolality 318 Mosm/kg 06/02/21 13:50 Urine Sodium 13 mmol/L 06/02/21 13:50 Hepatitis A IgM Ab Non-reactive (NonReactive) 06/02/21 11:03 Hep Bs Antigen Non-reactive (Negative) 06/02/21 11:03 Hep B Core IgM Ab Non-reactive (NonReactive) 06/02/21 11:03 Hepatitis C Antibody Non-reactive (NonReactive) 06/02/21 11:03 Microbiology: Microbiology 06/01/21 12:53 Peripheral/Venous Blood Culture - Preliminary NO GROWTH AFTER 24 HOURS 06/01/21 12:53 Peripheral/Venous Blood Culture - Preliminary NO GROWTH AFTER 24 HOURS 06/01/21 Unknown Urine,Clean Catch Urine Culture - Preliminary Gram Negative Carlos Pagan/IV: Voiding Method Urinal Active Medications - Current Medications Current Medications: Generic Name Dose Route Start Last Admin Trade Name Freq PRN Reason Stop Dose Admin Acetaminophen 650 mg 06/01/21 18:37 06/02/21 04:06 Acetaminophen 325 Mg Tab PO 650 mg Q4H PRN Administration Pain MILD(1-3)/Fever >100.5/AN Heparin Sodium (Porcine) 5,000 unit 06/01/21 22:00 06/02/21 11:49 Heparin 5,000 Unit/1 Ml Vial SUB-Q 5,000 unit Q12HR DAVID Administration Hydromorphone HCl 0.5 mg 06/01/21 18:45 06/02/21 11:48 Hydromorphone 1 Mg/1 Ml Inj IV 0.5 mg Q3H PRN Administration Pain , Severe (7-10) Sodium Chloride 1,000 mls @ 75 mls/hr 06/01/21 18:45 Nacl 0.9% 1000 Ml IV DIRECT DAVID Ceftriaxone Sodium 1 gm in 50 mls @ 100 mls/hr 06/02/21 00:00 06/02/21 02:39 Rocephin/Ns 1 Gm/50 Ml IV 100 mls/hr Q24H DAVID Administration Protocol CALC GLUCONATE 1GM/NS 100 ML 1 gm in 100 mls @ 300 mls/hr 06/02/21 08:00 Calcium Gluonate/Ns 1,000mg/100ml IV 06/03/21 08:19 Q10MIN [facility] Insulin Human Isoph/Insulin Regular 10 unit 06/02/21 17:00 Insulin Nph/Regular 70/30 Inj SUB-Q BIDDIAB DAVID Insulin Human Lispro 0 unit 06/02/21 16:30 Insulin Lispro 100 Unit/Ml SUB-Q ACHS [facility] Protocol Multivitamins/Minerals 1 each 06/02/21 10:00 06/02/21 11:50 Calcium Carb/Vit D3/Minerals 600 Mg/800 Units Tab PO 1 each BID DAVID Administration Ondansetron HCl 4 mg 06/02/21 12:24 06/02/21 12:52 Ondansetron 4 Mg/2 Ml Inj IV 4 mg Q4H PRN Administration Nausea And Vomiting Oxycodone/Acetaminophen 1 tab 06/01/21 18:37 06/01/21 22:56 Oxycodone /Acetaminophen 5-325mg Tab PO 1 tab Q6H PRN Administration Pain, Moderate (4-6) Prednisone 5 mg 06/02/21 10:00 06/02/21 11:50 Prednisone 5 Mg Tab PO 5 mg QDAY DAVID Administration Sodium Chloride 10 ml 06/01/21 22:00 06/02/21 11:52 Sodium Chloride 0.9% 10 Ml Flush Syringe IV 10 ml BID DAVID Administration Sodium Chloride 10 ml 06/01/21 18:37 Sodium Chloride 0.9% 10 Ml Flush Syringe IV PRN PRN LINE FLUSH Tacrolimus 3 mg 06/02/21 10:00 06/02/21 12:10 Tacrolimus 1 Mg Cap PO 3 mg Q12HR DAVID Administration
--- NOTE | 2021-06-02 15:41 | Progress Note ---
Assessment and Plan Assessment and plan: --Vo PCR test is negative --Patient is legally blind; Supportive care --Sepsis due to E. coli UTI Current Visit: Yes Status: Acute Continue Rocephin, and supportive care --Hyperkalemia/improved Current Visit: Yes Status: Acute Closely monitor electrolytes --CKD (chronic kidney disease) Current Visit: Yes Status: Chronic Baseline creatinine is not known No previous admissions Creatinine is 3.8 now Nephrology consulted --Hyponatremia Current Visit: Yes Status: Acute Sodium levels gradually improving Monitor electrolytes -- Hypomagnesemia Current Visit: Yes Status: Acute Replenish mag sulfate per protocol, monitor electrolytes --MYCHAL (acute kidney injury)/worsening renal function Current Visit: Yes Status: Acute Nephrology following, gentle hydration Monitor renal function, avoid nephrotoxins Renal dosing of medications -- Fever Current Visit: Yes Status: Acute Due to UTI/E. coli/continue Rocephin Chest x-ray No acute findings CT abdomen and pelvis Bladder wall circumferentially thickened. This could be related to cystitis. Correlate with urinalysis. End-stage [place] renal atrophy with right lower quadrant renal transplant. Mild perinephric cyst stranding around the transplant is nonspecific and there is no comparison. --S/P renal autotransplant Current Visit: Yes Status: Chronic Continue mycophenolate tacrolimus and prednisone Nephrology following --Hypocalcemia Current Visit: Yes Status: Chronic Supplemented --DVT prophylaxis Current Visit: Yes Status: Acute On heparin and GI prophylaxis -- Advance care planning Current Visit: Yes Status: Acute Disease education conducted, care plan discussed, diagnosis discussed, prognosis discussed. Patient is full code. Patient acknowledges understanding and agreement with care plan. +30 minutes. Advance Directives: Yes (Full code) VTE prophylaxis?: Chemical Plan of care discussed with patient/family:yes We will closely monitor the patient and adjust management as needed Plan of care reviewed with the patient and his nurse Vegetable Cook recommendations noted Brief history: 56-year-old male patient legally blind was admitted through emergency room with fever of 1 day duration patient was initially evaluated admitted as sepsis secondary to UTI acute kidney injury due to ATN and multiple electrolyte abnormalities as well with history of renal autotransplant status. Urine cultures positive for E. coli, on Rocephin Patient has intractable nausea vomiting this morning Abdominal series; diffuse distention of small bowel with mild dilation in the mid abdomen mildly more prominent than CT 2 days ago gases still seen throughout the colon findings remain nonspecific though early obstruction is not excluded, will repeat CT abdomen and pelvis morning And consult surgeon if needed 06/03; patient is legally blind, sepsis due to E. coli UTI Continue Rocephin and supportive care, abdominal series nonspecific findings, n.p.o. status Will check CT abdomen and pelvis in the morning and consult surgeon if needed History Interval history: I have seen and examined the patient this morning at the bedside patient's chart and medications reviewed Patient complaint Urine cultures positive for E. coli sensitive to Rocephin Vital signs reviewed Patient is legally blind Hospitalist Physical - Constitutional Vitals: Temp Pulse Resp BP Pulse Ox 99.3 F 89 18 129/27 99 06/02/21 12:06 06/02/21 12:06 06/02/21 15:00 06/02/21 12:06 06/02/21 15:00 General appearance: Present: no acute distress, well-nourished - EENT Eyes: Present: PERRL, EOM intact - Neck Neck: Present: supple, normal ROM - Respiratory Respiratory effort: normal Respiratory: bilateral: diminished, rhonchi, negative: rales, wheezing - Cardiovascular Rhythm: regular Heart Sounds: Present: S1 & S2 - Extremities Extremities: no ischemia, No edema - Abdominal General gastrointestinal: soft, non-tender, non-distended, normal bowel sounds - Integumentary Integumentary: Present: clear, warm - Psychiatric Psychiatric: appropriate mood/affect, cooperative - Neurologic Neurologic: moves all extremities HEART Score - HEART Score Troponin: Troponin T 0.019 ng/mL (0.00-0.029) 06/01/21 14:40 Results - Labs CBC & Chem 7: 06/03/21 04:22 06/03/21 04:22 Labs: Laboratory Last Values WBC 7.0 K/mm3 (4.5-11.0) 06/02/21 05:13 RBC 4.13 M/mm3 (3.65-5.03) 06/02/21 05:13 Hgb 12.3 gm/dl (11.8-15.2) 06/02/21 05:13 Hct 38.3 % (35.5-45.6) 06/02/21 05:13 MCV 93 fl (84-94) 06/02/21 05:13 MCH 30 pg (28-32) 06/02/21 05:13 MCHC 32 % (32-34) 06/02/21 05:13 RDW 14.0 % (13.2-15.2) 06/02/21 05:13 Plt Count 47 K/mm3 (140-440) L 06/02/21 05:13 Add Manual Diff Complete 06/02/21 05:13 Total Counted 100 06/02/21 05:13 Seg Neutrophils % Manager Relationship 06/02/21 05:13 Seg Neuts % (Manual) 79.0 % (40.0-70.0) H 06/02/21 05:13 Band Neutrophils % 6.0 % 06/02/21 05:13 Lymphocytes % (Manual) 2.0 % (13.4-35.0) L 06/02/21 05:13 Reactive Lymphs % (Man) 0 % 06/02/21 05:13 Monocytes % (Manual) 4.0 % (0.0-7.3) 06/02/21 05:13 Eosinophils % (Manual) 0 % (0.0-4.3) 06/02/21 05:13 Basophils % (Manual) 0 % (0.0-1.8) 06/02/21 05:13 Metamyelocytes % 8.0 % 06/02/21 05:13 Myelocytes % 1.0 % 06/02/21 05:13 Promyelocytes % 0 % 06/02/21 05:13 Blast Cells % 0 % 06/02/21 05:13 Nucleated RBC % Not Reportable 06/02/21 05:13 Seg Neutrophils # Man 5.5 K/mm3 (1.8-7.7) 06/02/21 05:13 Band Neutrophils # 0.4 K/mm3 06/02/21 05:13 Lymphocytes # (Manual) 0.1 K/mm3 (1.2-5.4) L 06/02/21 05:13 Abs React Lymphs (Man) 0.0 K/mm3 06/02/21 05:13 Monocytes # (Manual) 0.3 K/mm3 (0.0-0.8) 06/02/21 05:13 Eosinophils # (Manual) 0.0 K/mm3 (0.0-0.4) 06/02/21 05:13 Basophils # (Manual) 0.0 K/mm3 (0.0-0.1) 06/02/21 05:13 Metamyelocytes # 0.6 K/mm3 06/02/21 05:13 Myelocytes # 0.1 K/mm3 06/02/21 05:13 Promyelocytes # 0.0 K/mm3 06/02/21 05:13 Blast Cells # 0.0 K/mm3 06/02/21 05:13 WBC Morphology Not Reportable 06/02/21 05:13 Hypersegmented Neuts Not Reportable 06/02/21 05:13 Hyposegmented Neuts Not Reportable 06/02/21 05:13 Hypogranular Neuts Not Reportable 06/02/21 05:13 Smudge Cells Not Reportable 06/02/21 05:13 Toxic Granulation Not Reportable 06/02/21 05:13 Toxic Vacuolation Not Reportable 06/02/21 05:13 Dohle Bodies Not Reportable 06/02/21 05:13 Pelger-Huet Anomaly Not Reportable 06/02/21 05:13 Jen Rods Not Reportable 06/02/21 05:13 Platelet Estimate Consistent w auto 06/02/21 05:13 Clumped Platelets Not Reportable 06/02/21 05:13 Plt Clumps, EDTA Not Reportable 06/02/21 05:13 Large Platelets Not Reportable 06/02/21 05:13 Giant Platelets Not Reportable 06/02/21 05:13 Platelet Satelliting Not Reportable 06/02/21 05:13 Plt Morphology Comment Not Reportable 06/02/21 05:13 RBC Morphology Normal 06/02/21 05:13 Dimorphic RBCs Not Reportable 06/02/21 05:13 Polychromasia Not Reportable 06/02/21 05:13 Hypochromasia Not Reportable 06/02/21 05:13 Poikilocytosis Not Reportable 06/02/21 05:13 Anisocytosis Not Reportable 06/02/21 05:13 Microcytosis Not Reportable 06/02/21 05:13 Macrocytosis Not Reportable 06/02/21 05:13 Spherocytes Not Reportable 06/02/21 05:13 Pappenheimer Bodies Not Reportable 06/02/21 05:13 Sickle Cells Not Reportable 06/02/21 05:13 Target Cells Not Reportable 06/02/21 05:13 Tear Drop Cells Not Reportable 06/02/21 05:13 Ovalocytes Not Reportable 06/02/21 05:13 Helmet Cells Not Reportable 06/02/21 05:13 [place] Bodies Not Reportable 06/02/21 05:13 [place] Rings Not Reportable 06/02/21 05:13 [place] Cells Not Reportable 06/02/21 05:13 Bite Cells Not Reportable 06/02/21 05:13 Crenated Cell Not Reportable 06/02/21 05:13 Elliptocytes Not Reportable 06/02/21 05:13 Acanthocytes (Spur) Not Reportable 06/02/21 05:13 Rouleaux Not Reportable 06/02/21 05:13 Hemoglobin C Crystals Not Reportable 06/02/21 05:13 Schistocytes Not Reportable 06/02/21 05:13 Malaria parasites Not Reportable 06/02/21 05:13 [place] Bodies Not Reportable 06/02/21 05:13 Hem Pathologist Commnt No 06/02/21 05:13 Sodium 120 mmol/L (137-145) L D 06/02/21 05:13 Potassium 6.1 mmol/L (3.6-5.0) H* 06/02/21 05:13 Chloride 87.6 mmol/L (98-107) L 06/02/21 05:13 Carbon Dioxide 17 mmol/L (22-30) L 06/02/21 05:13 Anion Gap 22 mmol/L 06/02/21 05:13 BUN 68 mg/dL (9-20) H 06/02/21 05:13 Creatinine 4.2 mg/dL (0.8-1.3) H 06/02/21 05:13 Estimated GFR 15 ml/min 06/02/21 05:13 BUN/Creatinine Ratio 16 % 06/02/21 05:13 Glucose 337 mg/dL (75-100) H 06/02/21 05:13 POC Glucose 338 mg/dL (70-105) H 06/02/21 12:04 Lactic Acid 2.00 mmol/L (0.7-2.0) 06/01/21 14:40 Calcium 7.3 mg/dL (8.4-10.2) L 06/02/21 05:13 Magnesium 1.30 mg/dL (1.7-2.3) L 06/01/21 12:53 Total Bilirubin 0.70 mg/dL (0.1-1.2) 06/02/21 05:13 Direct Bilirubin 0.2 mg/dL (0-0.2) 06/01/21 12:53 Indirect Bilirubin 0.5 mg/dL 06/01/21 12:53 AST 38 units/L (5-40) 06/02/21 05:13 ALT 32 units/L (7-56) 06/02/21 05:13 Alkaline Phosphatase 160 units/L (35-129) H 06/02/21 05:13 Troponin T 0.019 ng/mL (0.00-0.029) 06/01/21 14:40 Total Protein 5.4 g/dL (6.3-8.2) L 06/02/21 05:13 Albumin 3.1 g/dL (3.9-5) L 06/02/21 05:13 Albumin/Globulin Ratio 1.3 % 06/02/21 05:13 Lipase 6 units/L (13-60) L 06/01/21 12:53 Urine Color Patience (Yellow) 06/01/21 Unknown Urine Turbidity Cloudy (Clear) 06/01/21 Unknown Urine pH 5.0 (5.0-7.0) 06/01/21 Unknown Ur Specific [place] 1.016 (1.003-1.030) 06/01/21 Unknown Urine Protein 100 mg/dl mg/dL (Negative) 06/01/21 Unknown Urine Glucose (UA) 50 mg/dL (Negative) 06/01/21 Unknown Urine Ketones Neg mg/dL (Negative) 06/01/21 Unknown Urine Blood Mod (Negative) 06/01/21 Unknown Urine Nitrite Neg (Negative) 06/01/21 Unknown Urine Bilirubin Neg (Negative) 06/01/21 Unknown Urine Urobilinogen < 2.0 mg/dL (<2.0) 06/01/21 Unknown Ur Leukocyte Esterase Lg (Negative) 06/01/21 Unknown Urine WBC (Auto) > 182.0 /HPF (0.0-6.0) H 06/01/21 Unknown Urine RBC (Auto) 24.0 /HPF (0.0-6.0) 06/01/21 Unknown U Epithel Cells (Auto) 3.0 /HPF (0-13.0) 06/01/21 Unknown Urine Bacteria (Auto) 1+ /HPF (Negative) 06/01/21 Unknown Urine WBC Clumps 3+ /HPF 06/01/21 Unknown Ur Transition Epith Cell 4 /HPF 06/01/21 Unknown Urine Mucus Few /HPF 06/01/21 Unknown Urine Osmolality 318 Mosm/kg 06/02/21 13:50 Urine Sodium 13 mmol/L 06/02/21 13:50 Hepatitis A IgM Ab Non-reactive (NonReactive) 06/02/21 11:03 Hep Bs Antigen Non-reactive (Negative) 06/02/21 11:03 Hep B Core IgM Ab Non-reactive (NonReactive) 06/02/21 11:03 Hepatitis C Antibody Non-reactive (NonReactive) 06/02/21 11:03 Microbiology: Microbiology 06/01/21 12:53 Peripheral/Venous Blood Culture - Preliminary NO GROWTH AFTER 24 HOURS 06/01/21 12:53 Peripheral/Venous Blood Culture - Preliminary NO GROWTH AFTER 24 HOURS 06/01/21 Unknown Urine,Clean Catch Urine Culture - Preliminary Gram Negative Carlos Pagan/IV: Voiding Method Urinal Active Medications - Current Medications Current Medications: Generic Name Dose Route Start Last Admin Trade Name Freq PRN Reason Stop Dose Admin Acetaminophen 650 mg 06/01/21 18:37 06/02/21 04:06 Acetaminophen 325 Mg Tab PO 650 mg Q4H PRN Administration Pain MILD(1-3)/Fever >100.5/AN Heparin Sodium (Porcine) 5,000 unit 06/01/21 22:00 06/02/21 11:49 Heparin 5,000 Unit/1 Ml Vial SUB-Q 5,000 unit Q12HR DAVID Administration Hydromorphone HCl 0.5 mg 06/01/21 18:45 06/02/21 11:48 Hydromorphone 1 Mg/1 Ml Inj IV 0.5 mg Q3H PRN Administration Pain , Severe (7-10) Sodium Chloride 1,000 mls @ 75 mls/hr 06/01/21 18:45 Nacl 0.9% 1000 Ml IV DIRECT DAVID Ceftriaxone Sodium 1 gm in 50 mls @ 100 mls/hr 06/02/21 00:00 06/02/21 02:39 Rocephin/Ns 1 Gm/50 Ml IV 100 mls/hr Q24H DAVID Administration Protocol CALC GLUCONATE 1GM/NS 100 ML 1 gm in 100 mls @ 300 mls/hr 06/02/21 08:00 Calcium Gluonate/Ns 1,000mg/100ml IV 06/03/21 08:19 Q10MIN DAVID Insulin Human Isoph/Insulin Regular 10 unit 06/02/21 17:00 Insulin Nph/Regular 70/30 Inj SUB-Q BIDDIAB DAVID Insulin Human Lispro 0 unit 06/02/21 16:30 Insulin Lispro 100 Unit/Ml SUB-Q ACHS [facility] Protocol Multivitamins/Minerals 1 each 06/02/21 10:00 06/02/21 11:50 Calcium Carb/Vit D3/Minerals 600 Mg/800 Units Tab PO 1 each BID DAVID Administration Ondansetron HCl 4 mg 06/02/21 12:24 06/02/21 12:52 Ondansetron 4 Mg/2 Ml Inj IV 4 mg Q4H PRN Administration Nausea And Vomiting Oxycodone/Acetaminophen 1 tab 06/01/21 18:37 06/01/21 22:56 Oxycodone /Acetaminophen 5-325mg Tab PO 1 tab Q6H PRN Administration Pain, Moderate (4-6) Prednisone 5 mg 06/02/21 10:00 06/02/21 11:50 Prednisone 5 Mg Tab PO 5 mg QDAY DAVID Administration Sodium Chloride 10 ml 06/01/21 22:00 06/02/21 11:52 Sodium Chloride 0.9% 10 Ml Flush Syringe IV 10 ml BID DAVID Administration Sodium Chloride 10 ml 06/01/21 18:37 Sodium Chloride 0.9% 10 Ml Flush Syringe IV PRN PRN LINE FLUSH Tacrolimus 3 mg 06/02/21 10:00 06/02/21 12:10 Tacrolimus 1 Mg Cap PO 3 mg Q12HR DAVID Administration
[2021-06-02] MEDS: SODIUM CHLORIDE 0.9% 1000 ML 1,000 ML IV SCH (16:09)
[2021-06-02] MEDS: INSULIN NPH/REGULAR 70/30 INJ SUB-Q SCH (17:11)
[2021-06-02] MEDS: INSULIN LISPRO 100 UNIT/ML SUB-Q SCH ×2 (17:12→22:29)
[2021-06-03] MEDS: HEPARIN 5,000 UNIT/1 ML VIAL SUB-Q SCH ×3 (02:26→22:13)
[2021-06-03] MEDS: HYDROmorphone 1 MG/1 ML INJ IV PRN ×3 (02:49→16:50)
[2021-06-03] MEDS: SODIUM CHLORIDE 0.9% 1000 ML 1,000 ML IV SCH (05:21)
[2021-06-03 06:34] LABS: Hemoglobin 12.3 gm/dl (11.8-15.2); Mean Corpuscular HGB Conc 32 % (32-34); Mean Corpuscular Volume 93 fl (84-94); Red Blood Count 4.11 M/mm3 (3.65-5.03); Red Cell Distribution Width 14.1 % (13.2-15.2)
[2021-06-03 06:47] LABS: Platelet Count 46 K/mm3 (140-440)
[2021-06-03 06:57] LABS: Albumin 2.4 g/dL (3.9-5)
[2021-06-03] MEDS: ONDANSETRON 4 MG/2 ML INJ IV PRN ×2 (08:30→16:50)
[2021-06-03 08:34] LABS: Band Neutrophils # (Manual) 1.9 K/mm3; Basophils % (Manual) 0 % (0.0-1.8); Burr Cells 1+; Eosinophils % (Manual) 0 % (0.0-4.3); Platelet Estimate Consistent w Auto; Total Cells Counted 100
[2021-06-03] MEDS: INSULIN LISPRO 100 UNIT/ML SUB-Q SCH ×4 (08:49→21:30)
[2021-06-03] MEDS: INSULIN NPH/REGULAR 70/30 INJ SUB-Q SCH ×2 (08:50→17:12)
[2021-06-03] MEDS: TACROLIMUS 1 MG CAP PO SCH ×2 (12:55→22:16)
[2021-06-03] MEDS: CALCIUM CARB/VIT D3/MINERALS 600 MG/800 UNITS TAB PO SCH ×2 (12:56→22:16)
[2021-06-03] MEDS: predniSONE 5 MG TAB PO SCH (12:56)
--- NOTE | 2021-06-03 14:54 | XRay Report ---
ACUTE ABDOMEN SERIES 3 VIEWS 1407 INDICATION: N V, pain in Abdomen COMPARISON: Portable chest x-ray 06/01/2021, CT abdomen and pelvis 06/01/2021 FINDINGS: Lung beavers are clear. No pneumoperitoneum is seen. Surgical changes are seen in the right pelvis related to the renal transplant. No obvious urinary tract calculi are seen. Bowel gas pattern shows diffuse distention of small bowel with mild dilatation in the mid abdomen. Mildly more prominen t than prior CT 2 days ago. Gas is still seen throughout the colon. Findings remain nonspecific thoug h early obstruction is not excluded, suggest follow-up. Signer Name: Jeremiah Doran MD Signed: 06/03/2021 2:49 PM Workstation Name: [id number]
--- NOTE | 2021-06-03 15:56 | Progress Note ---
Assessment and Plan # Acute Kidney Injury in setting of CKD, Transplant: creatinine at baseline around 1.5, 3.8->4.2->4.6 this AM. Suspect MYCHAL due to tubular injury in setting of UTI, sepsis. Have to consider other etiologies as well, as well as rejection but given clinical scenario less likely. Has been taking his immunosuppressants per report - continue IVF as tolerated, currently on NS at 100c/hr - maintain MAP>70 - urinalysis with blood/protein in setting of likely UTI- check serologies, UP/C - cystitis, sepsis management per primary - reviewed imaging, no acute kidney changes noted - continue tacrolimus, prednisone for home dosing- check tacrolimus level in AM, pending - hold mycophenolate for now given septic picture - I/Os - no immediate need for kidney biopsy or renal replacement therapy - medically management of electrolytes - if renal indices are not improving with supportive measures, will discuss with transplant nephrology team on 06/04 for recommendations from transplant standpoint # Hyperkalemia: K 5.1 this AM- medical management for now, may be related to MYCHAL vs prograf toxicity # Hyponatremia: sodium 129->120->131 with IVF, initially thought due to dehydration but both K/Na changes may be related to hyperglycemia (glucose 337) - check cortisol - urine studies noted # Hypomagnesemia, Hypocalcemia: replete # Metabolic Acidosis: initially with high lactate. HCO3 at 17->13 this AM, start HCO3 repletion # UTI, SIRS, Fever: on antibiotics, urine culture show E.coli UTI # Thrombocytopenia: worsening- consider hematology input Subjective Date of service: 06/03/21 Interval history: Resting in bed this afternoon. Chart, vitals, labs reviewed Objective - Exam Narrative Exam: Constitutional: no acute distress, blind Head: NC/AT Neck: supple Lungs: clear to auscultation CV: RRR, no M/R/G Abdomen: soft, non-tender, bowel sounds present Back: nontender Extremities: no edema, pulses WNL Skin: intact Neuro: no focal deficits, alert and oriented x4 - Vital Signs Vital signs: Vital Signs - 12hr 06/03/21 06/03/21 06/03/21 04:12 07:29 12:06 Temperature 98.1 F 99.5 F 98.9 F Pulse Rate 85 82 82 Respiratory 20 20 20 Rate Blood Pressure 144/66 155/29 154/50 O2 Sat by Pulse 96 93 93 Oximetry 06/03/21 12:11 Temperature 98.3 F Pulse Rate 85 Respiratory 20 Rate Blood Pressure 137/71 O2 Sat by Pulse 97 Oximetry - Lab 06/03/21 04:22 06/03/21 04:22 Most recent lab results Calcium 7.0 mg/dL (8.4-10.2) L 06/03/21 04:22 Magnesium 2.20 mg/dL (1.7-2.3) 06/03/21 04:22 Urine Sodium 13 mmol/L 06/02/21 13:50 Medications & Allergies - Medications Allergies/Adverse Reactions: Allergies adhesive tape Allergy (Verified 06/01/21 19:02) Rash Active Medications: Generic Name Dose Route Start Last Admin Trade Name Freq PRN Reason Stop Dose Admin Acetaminophen 650 mg 06/01/21 18:37 06/02/21 04:06 Acetaminophen 325 Mg Tab PO 650 mg Q4H PRN Administration Pain MILD(1-3)/Fever >100.5/AN Heparin Sodium (Porcine) 5,000 unit 06/01/21 22:00 06/03/21 12:56 Heparin 5,000 Unit/1 Ml Vial SUB-Q 5,000 unit Q12HR DAVID Administration Hydromorphone HCl 0.5 mg 06/01/21 18:45 06/03/21 08:30 Hydromorphone 1 Mg/1 Ml Inj IV 0.5 mg Q3H PRN Administration Pain , Severe (7-10) Sodium Chloride 1,000 mls @ 75 mls/hr 06/01/21 18:45 06/03/21 05:21 Nacl 0.9% 1000 Ml IV 75 mls/hr DIRECT DAVID Administration Ceftriaxone Sodium 1 gm in 50 mls @ 100 mls/hr 06/02/21 00:00 06/02/21 02:39 Rocephin/Ns 1 Gm/50 Ml IV 100 mls/hr Q24H DAVID Administration Protocol Insulin Human Isoph/Insulin Regular 10 unit 06/02/21 17:00 06/03/21 08:50 Insulin Nph/Regular 70/30 Inj SUB-Q 10 unit BIDDIAB DAVID Administration Insulin Human Lispro 0 unit 06/02/21 16:30 06/03/21 08:49 Insulin Lispro 100 Unit/Ml SUB-Q 3 unit ACHS DAVID Administration Protocol Multivitamins/Minerals 1 each 06/02/21 10:00 06/03/21 12:56 Calcium Carb/Vit D3/Minerals 600 Mg/800 Units Tab PO 1 each BID DAVID Administration Ondansetron HCl 4 mg 06/02/21 12:24 06/03/21 08:30 Ondansetron 4 Mg/2 Ml Inj IV 4 mg Q4H PRN Administration Nausea And Vomiting Oxycodone/Acetaminophen 1 tab 06/01/21 18:37 06/01/21 22:56 Oxycodone /Acetaminophen 5-325mg Tab PO 1 tab Q6H PRN Administration Pain, Moderate (4-6) Prednisone 5 mg 06/02/21 10:00 06/03/21 12:56 Prednisone 5 Mg Tab PO 5 mg QDAY DAVID Administration Sodium Chloride 10 ml 06/01/21 22:00 06/03/21 12:57 Sodium Chloride 0.9% 10 Ml Flush Syringe IV 10 ml BID DAVID Administration Sodium Chloride 10 ml 06/01/21 18:37 Sodium Chloride 0.9% 10 Ml Flush Syringe IV PRN PRN LINE FLUSH Tacrolimus 3 mg 06/02/21 10:00 06/03/21 12:55 Tacrolimus 1 Mg Cap PO 3 mg Q12HR DAVID Administration
[2021-06-03] MEDS: SODIUM BICARBONATE 650 MG TAB PO SCH (22:17)
[2021-06-04] MEDS: cefTRIAXone/NS 1 GM/50 ML 1 GM/50 ML BAG IV SCH ×2 (00:52)
[2021-06-04] MEDS: HYDROmorphone 1 MG/1 ML INJ IV PRN ×3 (00:58→16:10)
[2021-06-04] MEDS: ONDANSETRON 4 MG/2 ML INJ IV PRN (00:58)
[2021-06-04] MEDS: SODIUM CHLORIDE 0.9% 1000 ML 1,000 ML IV SCH (03:13)
[2021-06-04 05:28] LABS: Albumin 2.9 g/dL (3.9-5); Calcium 8.3 mg/dL (8.4-10.2)
[2021-06-04] MEDS: INSULIN NPH/REGULAR 70/30 INJ SUB-Q SCH ×2 (08:00→18:31)
[2021-06-04] MEDS: INSULIN LISPRO 100 UNIT/ML SUB-Q SCH ×4 (08:00→22:42)
--- NOTE | 2021-06-04 08:46 | Cat Scan Report ---
CT ABDOMEN AND PELVIS WITHOUT CONTRAST HISTORY: Intractable nausea vomiting/abnormal abdominal ser. COMPARISON: 06/01/2021 TECHNIQUE: CT images of the abdomen and pelvis were obtained without administration of intravenous co ntrast. All CT scans at this location are performed using CT dose reduction for ALARA by means of au tomated exposure control. FINDINGS: Lungs/bones: Lower lobe atelectasis/opacities are new Abdomen/pelvis: Within limits of a noncontrast exam the liver, spleen, adrenal glands, pancreas appe ar normal. The gallbladder is distended. Severe atrophy of bilateral kidneys. Large nonobstructing st one within left kidney measures 8 mm. Vascular calcifications are seen throughout. There is a right lower quadrant renal transplant. The renal transplant is heterogeneous with areas of low attenuation within it. This could represent hydronephrosis, dilatation of the calyces or even in fection. Mild fullness is identified. Urinary bladder appears normal. There is mild thickening of the descending colon and into the sigmoid colon wall. No bowel obstructio n is seen. No free fluid in the abdomen or pelvis. Mild inflammation stranding in the retroperitoneum IMPRESSION: 1. Right lower quadrant renal transplant. The renal transplant appears enlarged. The transplant is he terogeneous in appearance which appears new since prior examination. There is surrounding perinephric stranding. Findings concerning for pyelonephritis/abscess. Further evaluation workup is recommended. 2. Questionable mild thickening of the descending colon and sigmoid colon liu. 3. Gallbladder is distended however no pericholecystic fluid. 4. Bilateral lower lobe effusions with lower lobe atelectasis/infiltrate. Signer Name: Pepe Dang MD Signed: 06/04/2021 8:41 AM Workstation Name: [id number]
--- NOTE | 2021-06-04 08:57 | Progress Note ---
Assessment and Plan Assessment and plan: --Vo PCR test is negative --Patient is legally blind; Supportive care --Sepsis due to E. coli UTI Current Visit: Yes Status: Acute Continue Rocephin, and supportive care --Hyperkalemia/improved Current Visit: Yes Status: Acute Closely monitor electrolytes --CKD (chronic kidney disease) Current Visit: Yes Status: Chronic Baseline creatinine is not known No previous admissions Creatinine is 3.8 now Nephrology consulted --Hyponatremia Current Visit: Yes Status: Acute Sodium levels gradually improving Monitor electrolytes -- Hypomagnesemia Current Visit: Yes Status: Acute Replenish mag sulfate per protocol, monitor electrolytes --MYCHAL (acute kidney injury)/worsening renal function Current Visit: Yes Status: Acute Nephrology following, gentle hydration Monitor renal function, avoid nephrotoxins Renal dosing of medications -- Fever Current Visit: Yes Status: Acute Due to UTI/E. coli/continue Rocephin Severe protein calorie malnutrition/hypoalbuminemia Nutrition supplements, nutrition consult Intractable nausea vomiting/abdominal series nonspecific findings small bowel distention NPO, IV fluids Check CT abdomen and pelvis without contrast tomorrow morning Consult surgery if needed Chest x-ray No acute findings CT abdomen and pelvis Bladder wall circumferentially thickened. This could be related to cystitis. Correlate with urinalysis. End-stage [place] renal atrophy with right lower quadrant renal transplant. Mild perinephric cyst stranding around the transplant is nonspecific and there is no comparison. --S/P renal autotransplant Current Visit: Yes Status: Chronic Continue mycophenolate tacrolimus and prednisone Nephrology following --Hypocalcemia Current Visit: Yes Status: Chronic Supplemented --DVT prophylaxis Current Visit: Yes Status: Acute On heparin and GI prophylaxis -- Advance care planning Current Visit: Yes Status: Acute Disease education conducted, care plan discussed, diagnosis discussed, prognosis discussed. Patient is full code. Patient acknowledges understanding and agreement with care plan. +30 minutes. Advance Directives: Yes (Full code) VTE prophylaxis?: Chemical Plan of care discussed with patient/family:yes We will closely monitor the patient and adjust management as needed Plan of care reviewed with the patient and his nurse Teacher Citizenship recommendations noted Brief history: 56-year-old male patient legally blind was admitted through emergency room with fever of 1 day duration patient was initially evaluated admitted as sepsis secondary to UTI acute kidney injury due to ATN and multiple electrolyte abnormalities as well with history of renal autotransplant status. Urine cultures positive for E. coli, on Rocephin Patient has intractable nausea vomiting this morning Abdominal series; diffuse distention of small bowel with mild dilation in the mid abdomen mildly more prominent than CT 2 days ago gases still seen throughout the colon findings remain nonspecific though early obstruction is not excluded, will repeat CT abdomen and pelvis morning And consult surgeon if needed 06/03; patient is legally blind, sepsis due to E. coli UTI Continue Rocephin and supportive care, abdominal series nonspecific findings, n.p.o. status Will check CT abdomen and pelvis in the morning and consult surgeon if needed 06/04: Consulted With ID to assist in management of this critically ill patient. continue current managmeent, no clear recovery of renal function noted. Awaiting futher recommendation from supplier development manager based on their discussion with the transplant team. await CT AP History Interval history: Patient seen and examined, no new complaints but still with abdominal pain. I have seen and examined the patient this morning at the bedside patient's chart and medications reviewed Patient complaint Urine cultures positive for E. coli sensitive to Rocephin Vital signs reviewed Patient is legally blind Hospitalist Physical - Physical exam Narrative exam: General appearance: Present: no acute distress, well-nourished - EENT Eyes: Present: PERRL, EOM intact - Neck Neck: Present: supple, normal ROM - Respiratory Respiratory effort: normal Respiratory: bilateral: diminished, rhonchi, negative: rales, wheezing - Cardiovascular Rhythm: regular Heart Sounds: Present: S1 & S2 - Extremities Extremities: no ischemia, No edema - Abdominal General gastrointestinal: soft, non-tender, non-distended, normal bowel sounds - Integumentary Integumentary: Present: clear, warm - Psychiatric Psychiatric: appropriate mood/affect, cooperative - Neurologic Neurologic: moves all extremities - Constitutional Vitals: Temp Pulse Resp BP Pulse Ox 100.0 F H 88 16 170/41 91 06/04/21 04:14 06/04/21 04:14 06/04/21 04:14 06/04/21 04:14 06/04/21 04:14 General appearance: Present: no acute distress, well-nourished HEART Score - HEART Score Troponin: Troponin T 0.019 ng/mL (0.00-0.029) 06/01/21 14:40 Results - Labs CBC & Chem 7: 06/03/21 04:22 06/04/21 04:03 Labs: Laboratory Last Values WBC 11.2 K/mm3 (4.5-11.0) H 06/03/21 04:22 RBC 4.11 M/mm3 (3.65-5.03) 06/03/21 04:22 Hgb 12.3 gm/dl (11.8-15.2) 06/03/21 04:22 Hct 38.0 % (35.5-45.6) 06/03/21 04:22 MCV 93 fl (84-94) 06/03/21 04:22 MCH 30 pg (28-32) 06/03/21 04:22 MCHC 32 % (32-34) 06/03/21 04:22 RDW 14.1 % (13.2-15.2) 06/03/21 04:22 Plt Count 46 K/mm3 (140-440) L 06/03/21 04:22 Add Manual Diff Complete 06/03/21 04:22 Total Counted 100 06/03/21 04:22 Seg Neutrophils % In Home Tutor 06/02/21 05:13 Seg Neuts % (Manual) 76.0 % (40.0-70.0) H 06/03/21 04:22 Band Neutrophils % 17.0 % 06/03/21 04:22 Lymphocytes % (Manual) 1.0 % (13.4-35.0) L 06/03/21 04:22 Reactive Lymphs % (Man) 0 % 06/03/21 04:22 Monocytes % (Manual) 6.0 % (0.0-7.3) 06/03/21 04:22 Eosinophils % (Manual) 0 % (0.0-4.3) 06/03/21 04:22 Basophils % (Manual) 0 % (0.0-1.8) 06/03/21 04:22 Metamyelocytes % 0 % 06/03/21 04:22 Myelocytes % 0 % 06/03/21 04:22 Promyelocytes % 0 % 06/03/21 04:22 Blast Cells % 0 % 06/03/21 04:22 Nucleated RBC % Not Reportable 06/03/21 04:22 Seg Neutrophils # Man 8.5 K/mm3 (1.8-7.7) H 06/03/21 04:22 Band Neutrophils # 1.9 K/mm3 06/03/21 04:22 Lymphocytes # (Manual) 0.1 K/mm3 (1.2-5.4) L 06/03/21 04:22 Abs React Lymphs (Man) 0.0 K/mm3 06/03/21 04:22 Monocytes # (Manual) 0.7 K/mm3 (0.0-0.8) 06/03/21 04:22 Eosinophils # (Manual) 0.0 K/mm3 (0.0-0.4) 06/03/21 04:22 Basophils # (Manual) 0.0 K/mm3 (0.0-0.1) 06/03/21 04:22 Metamyelocytes # 0.0 K/mm3 06/03/21 04:22 Myelocytes # 0.0 K/mm3 06/03/21 04:22 Promyelocytes # 0.0 K/mm3 06/03/21 04:22 Blast Cells # 0.0 K/mm3 06/03/21 04:22 WBC Morphology Not Reportable 06/03/21 04:22 Hypersegmented Neuts Not Reportable 06/03/21 04:22 Hyposegmented Neuts Not Reportable 06/03/21 04:22 Hypogranular Neuts Not Reportable 06/03/21 04:22 Smudge Cells Not Reportable 06/03/21 04:22 Toxic Granulation Not Reportable 06/03/21 04:22 Toxic Vacuolation Not Reportable 06/03/21 04:22 Dohle Bodies Not Reportable 06/03/21 04:22 Pelger-Huet Anomaly Not Reportable 06/03/21 04:22 Jen Rods Not Reportable 06/03/21 04:22 Platelet Estimate Consistent w auto 06/03/21 04:22 Clumped Platelets Not Reportable 06/03/21 04:22 Plt Clumps, EDTA Not Reportable 06/03/21 04:22 Large Platelets Not Reportable 06/03/21 04:22 Giant Platelets Not Reportable 06/03/21 04:22 Platelet Satelliting Not Reportable 06/03/21 04:22 Plt Morphology Comment Not Reportable 06/03/21 04:22 RBC Morphology Not Reportable 06/03/21 04:22 Dimorphic RBCs Not Reportable 06/03/21 04:22 Polychromasia Not Reportable 06/03/21 04:22 Hypochromasia Not Reportable 06/03/21 04:22 Poikilocytosis Not Reportable 06/03/21 04:22 Anisocytosis Not Reportable 06/03/21 04:22 Microcytosis Not Reportable 06/03/21 04:22 Macrocytosis Not Reportable 06/03/21 04:22 Spherocytes Not Reportable 06/03/21 04:22 Pappenheimer Bodies Not Reportable 06/03/21 04:22 Sickle Cells Not Reportable 06/03/21 04:22 Target Cells Not Reportable 06/03/21 04:22 Tear Drop Cells Not Reportable 06/03/21 04:22 Ovalocytes Not Reportable 06/03/21 04:22 Helmet Cells Not Reportable 06/03/21 04:22 [place] Bodies Not Reportable 06/03/21 04:22 [place] Rings Not Reportable 06/03/21 04:22 Praveen Cells 1+ 06/03/21 04:22 Bite Cells Not Reportable 06/03/21 04:22 Crenated Cell Not Reportable 06/03/21 04:22 Elliptocytes Not Reportable 06/03/21 04:22 Acanthocytes (Spur) Not Reportable 06/03/21 04:22 Rouleaux Not Reportable 06/03/21 04:22 Hemoglobin C Crystals Not Reportable 06/03/21 04:22 Schistocytes Not Reportable 06/03/21 04:22 Malaria parasites Not Reportable 06/03/21 04:22 [place] Bodies Not Reportable 06/03/21 04:22 Hem Pathologist Commnt No 06/03/21 04:22 Sodium 139 mmol/L (137-145) D 06/04/21 04:03 Potassium 4.5 mmol/L (3.6-5.0) 06/04/21 04:03 Chloride 100.2 mmol/L (98-107) 06/04/21 04:03 Carbon Dioxide 15 mmol/L (22-30) L 06/04/21 04:03 Anion Gap 28 mmol/L 06/04/21 04:03 BUN 97 mg/dL (9-20) H 06/04/21 04:03 Creatinine 4.8 mg/dL (0.8-1.3) H 06/04/21 04:03 Estimated GFR 13 ml/min 06/04/21 04:03 BUN/Creatinine Ratio 20 % 06/04/21 04:03 Glucose 144 mg/dL (75-100) H 06/04/21 04:03 POC Glucose 101 mg/dL (70-105) 06/03/21 19:48 Hemoglobin A1c 8.4 % (4-6) H 06/03/21 04:22 Lactic Acid 2.00 mmol/L (0.7-2.0) 06/01/21 14:40 Calcium 8.3 mg/dL (8.4-10.2) L D 06/04/21 04:03 Magnesium 2.40 mg/dL (1.7-2.3) H 06/04/21 04:03 Total Bilirubin 0.50 mg/dL (0.1-1.2) 06/04/21 04:03 Direct Bilirubin 0.2 mg/dL (0-0.2) 06/01/21 12:53 Indirect Bilirubin 0.5 mg/dL 06/01/21 12:53 AST 18 units/L (5-40) 06/04/21 04:03 ALT 23 units/L (7-56) 06/04/21 04:03 Alkaline Phosphatase 175 units/L (35-129) H 06/04/21 04:03 Troponin T 0.019 ng/mL (0.00-0.029) 06/01/21 14:40 Total Protein 5.7 g/dL (6.3-8.2) L 06/04/21 04:03 Albumin 2.9 g/dL (3.9-5) L 06/04/21 04:03 Albumin/Globulin Ratio 1.0 % 06/04/21 04:03 Lipase 6 units/L (13-60) L 06/01/21 12:53 Urine Color Patience (Yellow) 06/01/21 Unknown Urine Turbidity Cloudy (Clear) 06/01/21 Unknown Urine pH 5.0 (5.0-7.0) 06/01/21 Unknown Ur Specific [place] 1.016 (1.003-1.030) 06/01/21 Unknown Urine Protein 100 mg/dl mg/dL (Negative) 06/01/21 Unknown Urine Glucose (UA) 50 mg/dL (Negative) 06/01/21 Unknown Urine Ketones Neg mg/dL (Negative) 06/01/21 Unknown Urine Blood Mod (Negative) 06/01/21 Unknown Urine Nitrite Neg (Negative) 06/01/21 Unknown Urine Bilirubin Neg (Negative) 06/01/21 Unknown Urine Urobilinogen < 2.0 mg/dL (<2.0) 06/01/21 Unknown Ur Leukocyte Esterase Lg (Negative) 06/01/21 Unknown Urine WBC (Auto) > 182.0 /HPF (0.0-6.0) H 06/01/21 Unknown Urine RBC (Auto) 24.0 /HPF (0.0-6.0) 06/01/21 Unknown U Epithel Cells (Auto) 3.0 /HPF (0-13.0) 06/01/21 Unknown Urine Bacteria (Auto) 1+ /HPF (Negative) 06/01/21 Unknown Urine WBC Clumps 3+ /HPF 06/01/21 Unknown Ur Transition Epith Cell 4 /HPF 06/01/21 Unknown Urine Mucus Few /HPF 06/01/21 Unknown Urine Osmolality 318 Mosm/kg 06/02/21 13:50 Urine Sodium 13 mmol/L 06/02/21 13:50 Coronavirus (PCR) Negative (Negative) 06/03/21 08:45 Hepatitis A IgM Ab Non-reactive (NonReactive) 06/02/21 11:03 Hep Bs Antigen Non-reactive (Negative) 06/02/21 11:03 Hep B Core IgM Ab Non-reactive (NonReactive) 06/02/21 11:03 Hepatitis C Antibody Non-reactive (NonReactive) 06/02/21 11:03 Microbiology: Microbiology 06/01/21 12:53 Peripheral/Venous Blood Culture - Preliminary NO GROWTH AFTER 48 HOURS 06/01/21 12:53 Peripheral/Venous Blood Culture - Preliminary NO GROWTH AFTER 48 HOURS 06/01/21 Unknown Urine,Clean Catch Urine Culture - Final Escherichia Coli Pagan/IV: Voiding Method Urinal Active Medications - Current Medications Current Medications: Generic Name Dose Route Start Last Admin Trade Name Freq PRN Reason Stop Dose Admin Acetaminophen 650 mg 06/01/21 18:37 06/02/21 04:06 Acetaminophen 325 Mg Tab PO 650 mg Q4H PRN Administration Pain MILD(1-3)/Fever >100.5/AN Heparin Sodium (Porcine) 5,000 unit 06/01/21 22:00 06/03/21 22:13 Heparin 5,000 Unit/1 Ml Vial SUB-Q 5,000 unit Q12HR DAVID Administration Hydromorphone HCl 0.5 mg 06/01/21 18:45 06/04/21 00:58 Hydromorphone 1 Mg/1 Ml Inj IV 0.5 mg Q3H PRN Administration Pain , Severe (7-10) Sodium Chloride 1,000 mls @ 75 mls/hr 06/01/21 18:45 06/04/21 03:13 Nacl 0.9% 1000 Ml IV 75 mls/hr DIRECT DAVID Administration Ceftriaxone Sodium 1 gm in 50 mls @ 100 mls/hr 06/02/21 00:00 06/04/21 00:52 Rocephin/Ns 1 Gm/50 Ml IV 100 mls/hr Q24H DAVID Administration Protocol Insulin Human Isoph/Insulin Regular 10 unit 06/02/21 17:00 06/03/21 17:12 Insulin Nph/Regular 70/30 Inj SUB-Q 10 unit BIDDIAB DAVID Administration Insulin Human Lispro 0 unit 06/02/21 16:30 06/03/21 21:30 Insulin Lispro 100 Unit/Ml SUB-Q Not Given ACHS [facility] Protocol Multivitamins/Minerals 1 each 06/02/21 10:00 06/03/21 22:16 Calcium Carb/Vit D3/Minerals 600 Mg/800 Units Tab PO 1 each BID DAVID Administration Ondansetron HCl 4 mg 06/02/21 12:24 06/04/21 00:58 Ondansetron 4 Mg/2 Ml Inj IV 4 mg Q4H PRN Administration Nausea And Vomiting Oxycodone/Acetaminophen 1 tab 06/01/21 18:37 06/01/21 22:56 Oxycodone /Acetaminophen 5-325mg Tab PO 1 tab Q6H PRN Administration Pain, Moderate (4-6) Prednisone 5 mg 06/02/21 10:00 06/03/21 12:56 Prednisone 5 Mg Tab PO 5 mg QDAY DAVID Administration Sodium Bicarbonate 650 mg 06/03/21 20:00 06/03/21 22:17 Sodium Bicarbonate 650 Mg Tab PO 650 mg TID DAVID Administration Sodium Chloride 10 ml 06/01/21 22:00 06/03/21 22:11 Sodium Chloride 0.9% 10 Ml Flush Syringe IV Not Given BID DAVID Sodium Chloride 10 ml 01/28/22 18:37 Sodium Chloride 0.9% 10 Ml Flush Syringe IV PRN PRN LINE FLUSH Tacrolimus 3 mg 06/02/21 10:00 06/03/21 22:16 Tacrolimus 1 Mg Cap PO 3 mg Q12HR DAVID Administration
[2021-06-04] MEDS: TACROLIMUS 1 MG CAP PO SCH ×2 (10:15→18:33)
[2021-06-04] MEDS: predniSONE 5 MG TAB PO SCH (10:15)
[2021-06-04] MEDS: SODIUM BICARBONATE 650 MG TAB PO SCH ×3 (10:15→22:33)
[2021-06-04] MEDS: CALCIUM CARB/VIT D3/MINERALS 600 MG/800 UNITS TAB PO SCH ×2 (10:15→22:34)
[2021-06-04] MEDS: HEPARIN 5,000 UNIT/1 ML VIAL SUB-Q SCH ×2 (10:16→22:42)
--- NOTE | 2021-06-04 10:23 | Progress Note ---
Subjective Date of service: 06/04/21 Principal diagnosis: mychal Interval history: # Acute Kidney Injury in setting of CKD, Transplant: Transplant Pyelonephritis creatinine at baseline around 1.5, cr is worse today Suspect MYCHAL due to tubular injury in setting of UTI, sepsis. Have to consider other etiologies as well, as well as rejection but given clinical scenario less likely. Has been taking his immunosuppressants per report - continue IVF as tolerated - maintain MAP>70 - urinalysis with blood/protein in setting of likely UTI - cystitis, sepsis management per primary - reviewed imaging, no acute kidney changes noted - continue tacrolimus, prednisone for home dosing- check tacrolimus level in AM, pending - hold mycophenolate for now given septic picture - I/Os - rec transfer to [place] transplant service - medically management of electrolytes will need BANK EXAMINER if no improvement next 24hrs # Hyperkalemia: medical management for now, may be related to MYCHAL vs prograf toxicity # Hyponatremia: # Hypomagnesemia, Hypocalcemia: replete # Metabolic Acidosis: initially with high lactate. start HCO3 repletion # UTI, SIRS, Fever: on antibiotics, urine culture show E.coli UTI # Thrombocytopenia: worsening- consider hematology input Subjective Interval history: events noted Resting in bed this afternoon. Chart, vitals, labs reviewed Objective - Exam Narrative Exam: Constitutional: no acute distress, blind Head: NC/AT Neck: supple Lungs: clear to auscultation CV: RRR, no M/R/G Abdomen: soft, non-tender, bowel sounds present Back: nontender Extremities: no edema, pulses WNL Skin: intact Neuro: no focal deficits, alert and oriented x4 Objective - Vital Signs Vital signs: Vital Signs - 12hr 06/03/21 06/03/21 06/04/21 23:19 23:27 02:11 Temperature 98.1 F 97.3 F L Pulse Rate 80 74 Respiratory 20 16 18 Rate Blood Pressure Blood Pressure 148/52 114/79 [Left] O2 Sat by Pulse 92 81 L 96 Oximetry 06/04/21 06/04/21 04:14 07:56 Temperature 100.0 F H 99 F Pulse Rate 88 86 Respiratory 16 18 Rate Blood Pressure 170/41 Blood Pressure 196/46 [Left] O2 Sat by Pulse 91 94 Oximetry - Lab 06/03/21 04:22 06/04/21 04:03 Most recent lab results Calcium 8.3 mg/dL (8.4-10.2) L D 06/04/21 04:03 Magnesium 2.40 mg/dL (1.7-2.3) H 06/04/21 04:03 Urine Sodium 13 mmol/L 06/02/21 13:50 Medications & Allergies - Medications Allergies/Adverse Reactions: Allergies adhesive tape Allergy (Verified 06/01/21 19:02) Rash Home Medications: Home Medications Medication Instructions Recorded Confirmed Last Taken Type Aspirin [Aspirin BABY CHEW TAB] 81 mg PO QDAY 06/04/21 06/04/21 Unknown History Cinacalcet HCl [Sensipar] 90 mg PO DAILY 06/04/21 06/04/21 Unknown History Insulin Aspart [Novolog Flexpen] 0 unit SQ TIDWM 06/04/21 06/04/21 Unknown History Insulin Detemir [Levemir Flextouch] 20 unit SQ QHS 06/04/21 06/04/21 Unknown History Multivitamin with Folic Acid 400 mcg PO QDAY 06/04/21 06/04/21 Unknown History [Daily-Kayla Tablet] Mycophenolate [Cellcept] 250 mg PO BID 06/04/21 06/04/21 Unknown History NIFEdipine [Nifedipine ER] 60 mg PO BID 06/04/21 06/04/21 Unknown History Omeprazole 40 mg PO QDAY 06/04/21 06/04/21 Unknown History Prednisone [predniSONE (Jo) ER 5 mg PO QDAY 06/04/21 06/04/21 Unknown History TAB] Sodium Bicarbonate 650 mg PO BID 06/04/21 06/04/21 Unknown History Sodium Polystyrene Sulfonate 30 gm PO 3XW 06/04/21 06/04/21 Unknown History [Kalexate] Tacrolimus [Prograf] 3 - 4 mg PO QAM&QHS 06/04/21 06/04/21 Unknown History cloNIDine HCL [Clonidine HCl] 0.3 mg PO TID 06/04/21 06/04/21 Unknown History Active Medications: Generic Name Dose Route Start Last Admin Trade Name Freq PRN Reason Stop Dose Admin Acetaminophen 650 mg 06/01/21 18:37 06/02/21 04:06 Acetaminophen 325 Mg Tab PO 650 mg Q4H PRN Administration Pain MILD(1-3)/Fever >100.5/AN Heparin Sodium (Porcine) 5,000 unit 06/01/21 22:00 06/04/21 10:16 Heparin 5,000 Unit/1 Ml Vial SUB-Q 5,000 unit Q12HR DAVID Administration Hydromorphone HCl 0.5 mg 06/01/21 18:45 06/04/21 00:58 Hydromorphone 1 Mg/1 Ml Inj IV 0.5 mg Q3H PRN Administration Pain , Severe (7-10) Sodium Chloride 1,000 mls @ 75 mls/hr 06/01/21 18:45 06/04/21 03:13 Nacl 0.9% 1000 Ml IV 75 mls/hr DIRECT DAVID Administration Ceftriaxone Sodium 1 gm in 50 mls @ 100 mls/hr 06/02/21 00:00 06/04/21 00:52 Rocephin/Ns 1 Gm/50 Ml IV 100 mls/hr Q24H [facility] Administration Protocol Insulin Human Isoph/Insulin Regular 10 unit 06/02/21 17:00 06/04/21 08:00 Insulin Nph/Regular 70/30 Inj SUB-Q Not Given BIDDIAB [facility] Insulin Human Lispro 0 unit 06/02/21 16:30 06/04/21 08:00 Insulin Lispro 100 Unit/Ml SUB-Q Not Given ACHS [facility] Protocol Multivitamins/Minerals 1 each 06/02/21 10:00 06/04/21 10:15 Calcium Carb/Vit D3/Minerals 600 Mg/800 Units Tab PO Not Given BID [facility] Ondansetron HCl 4 mg 06/02/21 12:24 06/04/21 00:58 Ondansetron 4 Mg/2 Ml Inj IV 4 mg Q4H PRN Administration Nausea And Vomiting Oxycodone/Acetaminophen 1 tab 06/01/21 18:37 06/01/21 22:56 Oxycodone /Acetaminophen 5-325mg Tab PO 1 tab Q6H PRN Administration Pain, Moderate (4-6) Prednisone 5 mg 06/02/21 10:00 06/04/21 10:15 Prednisone 5 Mg Tab PO Not Given QDAY [facility] Sodium Bicarbonate 650 mg 06/03/21 20:00 06/04/21 10:15 Sodium Bicarbonate 650 Mg Tab PO Not Given TID [facility] Sodium Chloride 10 ml 06/01/21 22:00 06/04/21 10:16 Sodium Chloride 0.9% 10 Ml Flush Syringe IV 6 ml BID DAVID Administration Sodium Chloride 10 ml 06/01/21 18:37 Sodium Chloride 0.9% 10 Ml Flush Syringe IV PRN PRN LINE FLUSH Tacrolimus 3 mg 06/02/21 10:00 06/04/21 10:15 Tacrolimus 1 Mg Cap PO Not Given Q12HR DAVID
[2021-06-04] MEDS: SODIUM BICARBONATE 150 MEQ in DEXTROSE 5% IN WATER 1,000 ML IV SCH ×2 (11:36→22:41)
--- NOTE | 2021-06-04 14:05 | Consultation ---
History of Present Illness - Reason for Consult Consult date: 06/04/21 - History of Present Illness 56-year-old man past medical history hypertension, renal transplant, diabetes presented to the hospital with dysuria and fever. He is fully vaccinated against COVID-19 Remdesivir history. He remains on immunosuppressive therapies for his transplant. Febrile on admission to 1.8 with a white count 11.2. Covid negative. Urinalysis with significant pyuria. Urine culture with E. coli. Imaging personally reviewed: CT abdomen pelvis: Pyelonephritis renal transplant. Review of Systems: Bold if positive, otherwise negative General: fevers, chills, rigors HEENT: visual disturbance, diplopia, eye pain Respiratory: cough, sputum, hemoptysis, shortness of breath Cardiovascular: chest pain, syncope Gastrointestinal: nausea, vomiting, diarrhea, abdominal pain Genitourinary: dysuria, hematuria, flank pain Musculoskeletal: neck pain, back pain, joint pain, edema Neurologic: headaches, seizures Hematologic: easy bruising or bleeding Endocrine: night sweats, acute weight loss Skin: rash, jaundice, redness Psychiatric: suicidal, homicidal ideation Past History Past Medical History: diabetes, hypertension, renal failure, other Past Surgical History: Other (Renal transplant) Social history: no significant social history Family history: no significant family history Medications and Allergies Allergies Allergy/AdvReac Type Severity Reaction Status Date / Time adhesive tape Allergy Rash Verified 06/01/21 19:02 Home Medications Medication Instructions Recorded Confirmed Last Taken Type Aspirin [Aspirin BABY CHEW TAB] 81 mg PO QDAY 06/04/21 06/04/21 Unknown History Cinacalcet HCl [Sensipar] 90 mg PO DAILY 06/04/21 06/04/21 Unknown History Insulin Aspart [Novolog Flexpen] 0 unit SQ TIDWM 06/04/21 06/04/21 Unknown History Insulin Detemir [Levemir Flextouch] 20 unit SQ QHS 06/04/21 06/04/21 Unknown History Multivitamin with Folic Acid 400 mcg PO QDAY 06/04/21 06/04/21 Unknown History [Daily-Kayla Tablet] Mycophenolate [Cellcept] 250 mg PO BID 06/04/21 06/04/21 Unknown History NIFEdipine [Nifedipine ER] 60 mg PO BID 06/04/21 06/04/21 Unknown History Omeprazole 40 mg PO QDAY 06/04/21 06/04/21 Unknown History Prednisone [predniSONE (Jo) ER 5 mg PO QDAY 06/04/21 06/04/21 Unknown History TAB] Sodium Bicarbonate 650 mg PO BID 06/04/21 06/04/21 Unknown History Sodium Polystyrene Sulfonate 30 gm PO 3XW 06/04/21 06/04/21 Unknown History [Kalexate] Tacrolimus [Prograf] 3 mg PO QPM 06/04/21 06/04/21 Unknown History Tacrolimus [Prograf] 4 mg PO QAM 06/04/21 06/04/21 Unknown History cloNIDine HCL [Clonidine HCl] 0.3 mg PO TID 06/04/21 06/04/21 Unknown History Active Meds: Active Medications Acetaminophen (Acetaminophen 325 Mg Tab) 650 mg PO Q4H PRN PRN Reason: Pain MILD(1-3)/Fever >100.5/AN Last Admin: 06/02/21 04:06 Dose: 650 mg Heparin Sodium (Porcine) (Heparin 5,000 Unit/1 Ml Vial) 5,000 unit SUB-Q Q12HR DAVID Last Admin: 06/04/21 10:16 Dose: 5,000 unit Hydromorphone HCl (Hydromorphone 1 Mg/1 Ml Inj) 0.5 mg IV Q3H PRN PRN Reason: Pain , Severe (7-10) Last Admin: 06/04/21 00:58 Dose: 0.5 mg Ceftriaxone Sodium (Rocephin/Ns 1 Gm/50 Ml) 1 gm in 50 mls @ 100 mls/hr IV Q24H DAVID; Protocol Last Admin: 06/04/21 00:52 Dose: 100 mls/hr Sodium Bicarbonate 150 meq/ (Dextrose) 1,150 mls @ 125 mls/hr IV DIRECT DAVID Last Admin: 06/04/21 11:36 Dose: 125 mls/hr Insulin Human Isoph/Insulin Regular (Insulin Nph/Regular 70/30 Inj) 10 unit SUB-Q BIDDIAB DAVID Last Admin: 06/04/21 08:00 Dose: Not Given Insulin Human Lispro (Insulin Lispro 100 Unit/Ml) 0 unit SUB-Q ACHS DAVID; Protocol Last Admin: 06/04/21 11:32 Dose: Not Given Multivitamins/Minerals (Calcium Carb/Vit D3/Minerals 600 Mg/800 Units Tab) 1 each PO BID [facility] Last Admin: 06/04/21 10:15 Dose: Not Given Ondansetron HCl (Ondansetron 4 Mg/2 Ml Inj) 4 mg IV Q4H PRN PRN Reason: Nausea And Vomiting Last Admin: 06/04/21 00:58 Dose: 4 mg Oxycodone/Acetaminophen (Oxycodone /Acetaminophen 5-325mg Tab) 1 tab PO Q6H PRN PRN Reason: Pain, Moderate (4-6) Last Admin: 06/01/21 22:56 Dose: 1 tab Prednisone (Prednisone 5 Mg Tab) 5 mg PO QDAY [facility] Last Admin: 06/04/21 10:15 Dose: Not Given Sodium Bicarbonate (Sodium Bicarbonate 650 Mg Tab) 650 mg PO TID [facility] Last Admin: 06/04/21 10:15 Dose: Not Given Sodium Chloride (Sodium Chloride 0.9% 10 Ml Flush Syringe) 10 ml IV BID [facility] Last Admin: 06/04/21 10:16 Dose: 6 ml Sodium Chloride (Sodium Chloride 0.9% 10 Ml Flush Syringe) 10 ml IV PRN PRN PRN Reason: LINE FLUSH Tacrolimus (Tacrolimus 1 Mg Cap) 4 mg PO QAM [facility] Tacrolimus (Tacrolimus 1 Mg Cap) 3 mg PO QPM [facility] Physical Examination - Physical Exam Narrative exam: Physical Exam: Constitutional: Alert, cooperative. No acute distress Head, Ears, Nose: Normocephalic, atraumatic. External ears, nose normal Eyes: Conjunctivae/corneas clear. No icterus. No ptosis. Neck: Supple, no meningeal signs Oral: dentition fair, no thrush Cardiovascular: S1, S2 normal. Respiratory: Good air entry, clear to auscultation bilaterally GI: Soft, non-tender; bowel sounds normal. No peritoneal signs. Musculoskeletal: No pedal edema, no cyanosis. Skin: No rash or abscess Hem/Lymphatic: No palpable cervical or supraclavicular nodes. No lymphangitis Psych: Mood ok. Affect normal Neurological: Awake, alert, oriented. No gross abnormality - Constitutional Vitals: Vital Signs Temp Pulse Resp BP Pulse Ox 98.0 F 87 20 143/90 95 06/04/21 11:00 06/04/21 11:00 06/04/21 11:00 06/04/21 11:00 06/04/21 11:00 Temperature -Last 24 Hours Temperature 98.0 F Temperature 99 F Temperature 100.0 F Temperature 97.3 F Temperature 98.1 F Temperature 97.2 F Temperature 98.6 F Results - Labs CBC & Chem 7: 06/03/21 04:22 06/04/21 04:03 Labs: Abnormal lab results 06/03/21 06/04/21 06/04/21 Range/Units 17:02 04:03 10:47 Carbon Dioxide 15 L (22-30) mmol/L BUN 97 H (9-20) mg/dL Creatinine 4.8 H (0.8-1.3) mg/dL Glucose 144 H (75-100) mg/dL POC Glucose 155 H 199 H (70-105) mg/dL Calcium 8.3 L D (8.4-10.2) mg/dL Magnesium 2.40 H (1.7-2.3) mg/dL Alkaline Phosphatase 175 H (35-129) units/L Total Protein 5.7 L (6.3-8.2) g/dL Albumin 2.9 L (3.9-5) g/dL Assessment and Plan Cultures: Blood culture no growth so far Urine culture E coli A/P: 56-year-old man past medical history hypertension, renal transplant, diabetes now with #Acute sepsis: with fevers and leukocytosis. Secondary to below #Pyelonephritis in the renal transplant: Given immunosuppression and pyelo of the renal transplant would recommend 2 weeks IV antibiotics. #Immunocompromised host: on tracolimus and steroids #DM2: tight glycemic control for best outcomes. #MYCHAL: renally dose medications. Possibility for [employer] if no improvement Recs: -Increased ceftriaxone to 2g q24h given pyelonephritis -Will plan 2 weeks IV antibitoics via midline, though if he is going to require HD will adjust ABx to be give with HD -Follow up blood cultures Thank you for the consult, we will continue to follow. Joshua Deng MD [facility] ([facility] O: [phone] F: [phone]
[2021-06-04] MEDS: cloNIDine 0.1 MG TAB PO SCH ×2 (18:38→21:59)
[2021-06-04] MEDS ORDERED: NON-FORMULARY EACH (Clonidine Hcl [Clonidine Hcl] 0.3 MG Tablet) PO SCH (20:00)
[2021-06-04] MEDS ORDERED: MYCOPHENOLATE 250 MG CAP PO SCH (22:00)
[2021-06-05] MEDS: cefTRIAXone/NS 1 GM/50 ML 1 GM/50 ML BAG IV SCH (01:38)
[2021-06-05 05:57] LABS: Hematocrit 35.6 % (35.5-45.6); Hemoglobin 11.4 gm/dl (11.8-15.2); Mean Corpuscular HGB Conc 32 % (32-34); Mean Corpuscular Volume 91 fl (84-94); Red Blood Count 3.91 M/mm3 (3.65-5.03); Red Cell Distribution Width 14.6 % (13.2-15.2)
[2021-06-05 06:03] LABS: Platelet Count 50 K/mm3 (140-440)
[2021-06-05 06:11] LABS: Albumin 2.5 g/dL (3.9-5); Calcium 8.4 mg/dL (8.4-10.2)
[2021-06-05 07:20] LABS: Total Cells Counted 100
[2021-06-05 07:21] LABS: Band Neutrophils # (Manual) 0.8 K/mm3; Basophils % (Manual) 0 % (0.0-1.8); Ovalocytes Few; Poikilocytosis 1+
[2021-06-05 07:23] LABS: Burr Cells Few; Platelet Estimate Consistent w Auto
[2021-06-05] MEDS: INSULIN NPH/REGULAR 70/30 INJ SUB-Q SCH ×2 (08:48→16:53)
[2021-06-05] MEDS: INSULIN LISPRO 100 UNIT/ML SUB-Q SCH ×3 (08:48→16:53)
--- NOTE | 2021-06-05 08:59 | Progress Note ---
Subjective Date of service: 06/05/21 Principal diagnosis: mychal Interval history: # Acute Kidney Injury in setting of CKD, Transplant: Transplant Pyelonephritis creatinine at baseline around 1.5, cr is stabilizing today, worsening BUN noted Suspect MYCHAL due to tubular injury in setting of UTI, sepsis. Have to consider other etiologies as well, as well as rejection but given clinical scenario less likely. Has been taking his immunosuppressants per report - continue IVF as tolerated, bicarb gtt, co2 is better today - maintain MAP>70 - urinalysis with blood/protein in setting of likely UTI - cystitis, sepsis management per primary - reviewed imaging, no acute kidney changes noted - continue tacrolimus, prednisone for home dosing- check tacrolimus level in AM, pending - hold mycophenolate for now given septic picture - I/Os - rec transfer to [place] transplant service - medically management of electrolytes will need [employer] if no improvement next 24hrs # Hyperkalemia: medical management for now, may be related to MYCHAL vs prograf toxicity # Hyponatremia: # Hypomagnesemia, Hypocalcemia: replete # Metabolic Acidosis: initially with high lactate. start HCO3 repletion # UTI, SIRS, Fever: on antibiotics, urine culture show E.coli UTI # Thrombocytopenia: worsening- consider hematology input Subjective Interval history: events noted Resting in bed this afternoon. Chart, vitals, labs reviewed Objective - Exam Narrative Exam: Constitutional: no acute distress, blind Head: NC/AT Neck: supple Lungs: clear to auscultation CV: RRR, no M/R/G Abdomen: soft, non-tender, bowel sounds present Back: nontender Extremities: no edema, pulses WNL Skin: intact Neuro: no focal deficits, alert and oriented x4 Objective - Vital Signs Vital signs: Vital Signs - 12hr 06/04/21 06/05/21 06/05/21 23:55 01:00 03:19 Temperature 98.3 F 98.6 F Pulse Rate 73 77 Respiratory 18 18 18 Rate Blood Pressure 190/32 172/46 O2 Sat by Pulse 96 96 93 Oximetry 06/05/21 06/05/21 08:23 08:27 Temperature 98.1 F Pulse Rate 79 Respiratory 18 Rate Blood Pressure 173/36 O2 Sat by Pulse 91 96 Oximetry - Lab 06/05/21 04:14 06/05/21 04:14 Most recent lab results Calcium 8.4 mg/dL (8.4-10.2) 06/05/21 04:14 Magnesium 2.40 mg/dL (1.7-2.3) H 06/04/21 04:03 Urine Sodium 13 mmol/L 06/02/21 13:50 Medications & Allergies - Medications Allergies/Adverse Reactions: Allergies adhesive tape Allergy (Verified 06/01/21 19:02) Rash Home Medications: Home Medications Medication Instructions Recorded Confirmed Last Taken Type Aspirin [Aspirin BABY CHEW TAB] 81 mg PO QDAY 06/04/21 06/04/21 Unknown History Cinacalcet HCl [Sensipar] 90 mg PO DAILY 06/04/21 06/04/21 Unknown History Insulin Aspart [Novolog Flexpen] 0 unit SQ TIDWM 06/04/21 06/04/21 Unknown History Insulin Detemir [Levemir Flextouch] 20 unit SQ QHS 06/04/21 06/04/21 Unknown History Multivitamin with Folic Acid 400 mcg PO QDAY 06/04/21 06/04/21 Unknown History [Daily-Kayla Tablet] Mycophenolate [Cellcept] 250 mg PO BID 06/04/21 06/04/21 Unknown History NIFEdipine [Nifedipine ER] 60 mg PO BID 06/04/21 06/04/21 Unknown History Omeprazole 40 mg PO QDAY 06/04/21 06/04/21 Unknown History Prednisone [predniSONE (Jo) ER 5 mg PO QDAY 06/04/21 06/04/21 Unknown History TAB] Sodium Bicarbonate 650 mg PO BID 06/04/21 06/04/21 Unknown History Sodium Polystyrene Sulfonate 30 gm PO 3XW 06/04/21 06/04/21 Unknown History [Kalexate] Tacrolimus [Prograf] 3 mg PO QPM 06/04/21 06/04/21 Unknown History Tacrolimus [Prograf] 4 mg PO QAM 06/04/21 06/04/21 Unknown History cloNIDine HCL [Clonidine HCl] 0.3 mg PO TID 06/04/21 06/04/21 Unknown History Active Medications: Generic Name Dose Route Start Last Admin Trade Name Freq PRN Reason Stop Dose Admin Acetaminophen 650 mg 06/01/21 18:37 06/02/21 04:06 Acetaminophen 325 Mg Tab PO 650 mg Q4H PRN Administration Pain MILD(1-3)/Fever >100.5/AN Aspirin 81 mg 06/05/21 10:00 Aspirin 81 Mg Tab Chew PO QDAY [facility] Cinacalcet 90 mg 06/05/21 10:00 Cinacalcet 30 Mg Tab PO QDAY [facility] Clonidine HCl 0.3 mg 06/04/21 20:00 06/04/21 21:59 Clonidine 0.1 Mg Tab PO Not Given TID [facility] Heparin Sodium (Porcine) 5,000 unit 06/01/21 22:00 06/04/21 22:42 Heparin 5,000 Unit/1 Ml Vial SUB-Q 5,000 unit Q12HR DAVID Administration Hydromorphone HCl 0.5 mg 06/01/21 18:45 06/04/21 16:10 Hydromorphone 1 Mg/1 Ml Inj IV 0.5 mg Q3H PRN Administration Pain , Severe (7-10) Sodium Bicarbonate 150 meq/ 1,150 mls @ 125 mls/hr 06/04/21 11:00 06/04/21 22:41 Dextrose IV 125 mls/hr DIRECT [facility] Administration Ceftriaxone Sodium 2 gm in 100 mls @ 200 mls/hr 06/05/21 22:00 Rocephin/Ns 2 Gm/100 Ml IV 06/15/21 22:29 Q24H [facility] Protocol Insulin Human Isoph/Insulin Regular 10 unit 06/02/21 17:00 06/05/21 08:48 Insulin Nph/Regular 70/30 Inj SUB-Q 10 unit BIDDIAB [facility] Administration Insulin Human Lispro 0 unit 06/02/21 16:30 06/05/21 08:48 Insulin Lispro 100 Unit/Ml SUB-Q 8 unit ACHS [facility] Administration Protocol Multivitamins 1 each 06/05/21 10:00 Multivitamins ,Therapeutic Tab PO QDAY [facility] Multivitamins/Minerals 1 each 06/02/21 10:00 06/04/21 22:34 Calcium Carb/Vit D3/Minerals 600 Mg/800 Units Tab PO Not Given BID [facility] Ondansetron HCl 4 mg 06/02/21 12:24 06/04/21 00:58 Ondansetron 4 Mg/2 Ml Inj IV 4 mg Q4H PRN Administration Nausea And Vomiting Oxycodone/Acetaminophen 1 tab 06/01/21 18:37 06/01/21 22:56 Oxycodone /Acetaminophen 5-325mg Tab PO 1 tab Q6H PRN Administration Pain, Moderate (4-6) Prednisone 5 mg 06/02/21 10:00 06/04/21 10:15 Prednisone 5 Mg Tab PO Not Given QDAY DAVID Sodium Bicarbonate 650 mg 06/03/21 20:00 06/04/21 22:33 Sodium Bicarbonate 650 Mg Tab PO Not Given TID DAVID Sodium Chloride 10 ml 06/01/21 22:00 06/04/21 22:42 Sodium Chloride 0.9% 10 Ml Flush Syringe IV 10 ml BID DAVID Administration Sodium Chloride 10 ml 06/01/21 18:37 Sodium Chloride 0.9% 10 Ml Flush Syringe IV PRN PRN LINE FLUSH Tacrolimus 4 mg 06/05/21 10:00 Tacrolimus 1 Mg Cap PO QAM DAVID Tacrolimus 3 mg 06/04/21 18:00 06/04/21 18:33 Tacrolimus 1 Mg Cap PO Not Given QPM DAVID
[2021-06-05] MEDS: HEPARIN 5,000 UNIT/1 ML VIAL SUB-Q SCH (09:54)
[2021-06-05] MEDS: SODIUM BICARBONATE 150 MEQ in DEXTROSE 5% IN WATER 1,000 ML IV SCH (09:54)
[2021-06-05] MEDS: CALCIUM CARB/VIT D3/MINERALS 600 MG/800 UNITS TAB PO SCH ×3 (09:58→21:21)
[2021-06-05] MEDS: ASPIRIN 81 MG TAB CHEW PO SCH ×2 (09:58→12:00)
[2021-06-05] MEDS: SODIUM BICARBONATE 650 MG TAB PO SCH ×3 (09:58→21:21)
[2021-06-05] MEDS: cloNIDine 0.1 MG TAB PO SCH ×4 (09:58→21:21)
[2021-06-05] MEDS: predniSONE 5 MG TAB PO SCH ×2 (09:58→12:03)
[2021-06-05] MEDS: TACROLIMUS 1 MG CAP PO SCH ×4 (09:59→17:43)
[2021-06-05] MEDS: CINACALCET 30 MG TAB PO SCH ×2 (09:59→12:00)
[2021-06-05] MEDS: MULTIVITAMINS ,THERAPEUTIC TAB PO SCH ×2 (09:59→12:02)
[2021-06-05] MEDS ORDERED: CINACALCET HCL 90 MG PO SCH (10:00)
--- NOTE | 2021-06-05 11:36 | Progress Note ---
Assessment and Plan Assessment and plan: #Sepsis secondary to E. coli UTI #Pyelonephritis -Continue Rocephin, will likely need 2 weeks of IV antibiotics -Blood cultures 06/01 -no growth to date -Urine culture grew E. coli #MYCHAL on CKD status post renal transplant -Transplant nephrology contacted it [facility]. I spoke with Dr. Nicolasa Gomez, she accepted the patient for admission. Will be transferred pending available bed today or tomorrow -Renal ultrasound ordered -Avoid nephrotoxins, renally dose medications -Continue prednisone and tacrolimus; continue to hold mycophenolate -Tacrolimus level pending -Nephrology following, assistance appreciated #Hyperkalemia -Improved, will continue to monitor #Insulin-dependent type 2 diabetes -Sliding scale increased to high intensity, continue Humulin 10 units twice daily -Goal glucose 140-180 #Hypertension -Continue clonidine #Legal blindness -stable History Interval history: No acute events overnight. Patient denies any discomfort or pain. Has no complaints at this time. Agreeable to transfer to [facility] for further care. Hospitalist Physical - Physical exam Narrative exam: GENERAL: Well-developed well-nourished. In no acute distress. CHEST/LUNGS: CTAB on room air HEART/CARDIOVASCULAR: RRR. No murmur, rubs or gallops appreciated. ABDOMEN: +BS. NT/ND. SKIN: No rashes noted. NEURO: No focal motor deficit. Follows all commands. MUSCULOSKELETAL: No joint effusion EXTREMITIES: Right upper extremity AV fistula. No cyanosis, clubbing or edema. PSYCH: Cooperative. - Constitutional Vitals: Temp Pulse Resp BP Pulse Ox 98.1 F 79 18 173/36 96 06/05/21 08:23 06/05/21 08:23 06/05/21 08:23 06/05/21 08:23 06/05/21 08:27 General appearance: Present: no acute distress, well-nourished HEART Score - HEART Score Troponin: Troponin T 0.019 ng/mL (0.00-0.029) 06/01/21 14:40 Results - Labs CBC & Chem 7: 06/05/21 04:14 06/05/21 04:14 Labs: Laboratory Last Values WBC 10.2 K/mm3 (4.5-11.0) 06/05/21 04:14 RBC 3.91 M/mm3 (3.65-5.03) 06/05/21 04:14 Hgb 11.4 gm/dl (11.8-15.2) L 06/05/21 04:14 Hct 35.6 % (35.5-45.6) 06/05/21 04:14 MCV 91 fl (84-94) 06/05/21 04:14 MCH 29 pg (28-32) 06/05/21 04:14 MCHC 32 % (32-34) 06/05/21 04:14 RDW 14.6 % (13.2-15.2) 06/05/21 04:14 Plt Count 50 K/mm3 (140-440) L 06/05/21 04:14 Add Manual Diff Complete 06/05/21 04:14 Total Counted 100 06/05/21 04:14 Seg Neutrophils % Fitter Placer 06/02/21 05:13 Seg Neuts % (Manual) 83.0 % (40.0-70.0) H 06/05/21 04:14 Band Neutrophils % 8.0 % 06/05/21 04:14 Lymphocytes % (Manual) 2.0 % (13.4-35.0) L 06/05/21 04:14 Reactive Lymphs % (Man) 0 % 06/05/21 04:14 Monocytes % (Manual) 6.0 % (0.0-7.3) 06/05/21 04:14 Eosinophils % (Manual) 1.0 % (0.0-4.3) 06/05/21 04:14 Basophils % (Manual) 0 % (0.0-1.8) 06/05/21 04:14 Metamyelocytes % 0 % 06/05/21 04:14 Myelocytes % 0 % 06/05/21 04:14 Promyelocytes % 0 % 06/05/21 04:14 Blast Cells % 0 % 06/05/21 04:14 Nucleated RBC % Not Reportable 06/05/21 04:14 Seg Neutrophils # Man 8.5 K/mm3 (1.8-7.7) H 06/05/21 04:14 Band Neutrophils # 0.8 K/mm3 06/05/21 04:14 Lymphocytes # (Manual) 0.2 K/mm3 (1.2-5.4) L 06/05/21 04:14 Abs React Lymphs (Man) 0.0 K/mm3 06/05/21 04:14 Monocytes # (Manual) 0.6 K/mm3 (0.0-0.8) 06/05/21 04:14 Eosinophils # (Manual) 0.1 K/mm3 (0.0-0.4) 06/05/21 04:14 Basophils # (Manual) 0.0 K/mm3 (0.0-0.1) 06/05/21 04:14 Metamyelocytes # 0.0 K/mm3 06/05/21 04:14 Myelocytes # 0.0 K/mm3 06/05/21 04:14 Promyelocytes # 0.0 K/mm3 06/05/21 04:14 Blast Cells # 0.0 K/mm3 06/05/21 04:14 WBC Morphology Not Reportable 06/05/21 04:14 Hypersegmented Neuts Not Reportable 06/05/21 04:14 Hyposegmented Neuts Not Reportable 06/05/21 04:14 Hypogranular Neuts Not Reportable 06/05/21 04:14 Smudge Cells Not Reportable 06/05/21 04:14 Toxic Granulation Not Reportable 06/05/21 04:14 Toxic Vacuolation Not Reportable 06/05/21 04:14 Dohle Bodies Not Reportable 06/05/21 04:14 Pelger-Huet Anomaly Not Reportable 06/05/21 04:14 Jen Rods Not Reportable 06/05/21 04:14 Platelet Estimate Consistent w auto 06/05/21 04:14 Clumped Platelets Not Reportable 06/05/21 04:14 Plt Clumps, EDTA Not Reportable 06/05/21 04:14 Large Platelets Not Reportable 06/05/21 04:14 Giant Platelets Not Reportable 06/05/21 04:14 Platelet Satelliting Not Reportable 06/05/21 04:14 Plt Morphology Comment Not Reportable 06/05/21 04:14 RBC Morphology Not Reportable 06/05/21 04:14 Dimorphic RBCs Not Reportable 06/05/21 04:14 Polychromasia Not Reportable 06/05/21 04:14 Hypochromasia Not Reportable 06/05/21 04:14 Poikilocytosis 1+ 06/05/21 04:14 Anisocytosis Not Reportable 06/05/21 04:14 Microcytosis Not Reportable 06/05/21 04:14 Macrocytosis Not Reportable 06/05/21 04:14 Spherocytes Not Reportable 06/05/21 04:14 Pappenheimer Bodies Not Reportable 06/05/21 04:14 Sickle Cells Not Reportable 06/05/21 04:14 Target Cells Not Reportable 06/05/21 04:14 Tear Drop Cells Not Reportable 06/05/21 04:14 Ovalocytes Few 06/05/21 04:14 Helmet Cells Not Reportable 06/05/21 04:14 [place] Bodies Not Reportable 06/05/21 04:14 [place] Rings Not Reportable 06/05/21 04:14 [place] Cells Few 06/05/21 04:14 Bite Cells Not Reportable 06/05/21 04:14 Crenated Cell Not Reportable 06/05/21 04:14 Elliptocytes Few 06/05/21 04:14 Acanthocytes (Spur) Not Reportable 06/05/21 04:14 Rouleaux Not Reportable 06/05/21 04:14 Hemoglobin C Crystals Not Reportable 06/05/21 04:14 Schistocytes Not Reportable 06/05/21 04:14 Malaria parasites Not Reportable 06/05/21 04:14 [place] Bodies Not Reportable 06/05/21 04:14 Hem Pathologist Commnt No 06/05/21 04:14 Sodium 134 mmol/L (137-145) L 06/05/21 04:14 Potassium 4.6 mmol/L (3.6-5.0) 06/05/21 04:14 Chloride 92.9 mmol/L (98-107) L 06/05/21 04:14 Carbon Dioxide 19 mmol/L (22-30) L 06/05/21 04:14 Anion Gap 27 mmol/L 06/05/21 04:14 BUN 109 mg/dL (9-20) H 06/05/21 04:14 Creatinine 4.7 mg/dL (0.8-1.3) H 06/05/21 04:14 Estimated GFR 13 ml/min 06/05/21 04:14 BUN/Creatinine Ratio 23 % 06/05/21 04:14 Glucose 385 mg/dL (75-100) H 06/05/21 04:14 POC Glucose 495 mg/dL (70-105) H 06/05/21 08:22 Hemoglobin A1c 8.4 % (4-6) H 06/03/21 04:22 Lactic Acid 2.00 mmol/L (0.7-2.0) 06/01/21 14:40 Calcium 8.4 mg/dL (8.4-10.2) 06/05/21 04:14 Magnesium 2.40 mg/dL (1.7-2.3) H 06/04/21 04:03 Total Bilirubin 0.40 mg/dL (0.1-1.2) 06/05/21 04:14 Direct Bilirubin 0.2 mg/dL (0-0.2) 06/01/21 12:53 Indirect Bilirubin 0.5 mg/dL 06/01/21 12:53 AST 11 units/L (5-40) 06/05/21 04:14 ALT 16 units/L (7-56) 06/05/21 04:14 Alkaline Phosphatase 143 units/L (35-129) H 06/05/21 04:14 Troponin T 0.019 ng/mL (0.00-0.029) 06/01/21 14:40 Total Protein 5.1 g/dL (6.3-8.2) L 06/05/21 04:14 Albumin 2.5 g/dL (3.9-5) L 06/05/21 04:14 Albumin/Globulin Ratio 1.0 % 06/05/21 04:14 Lipase 6 units/L (13-60) L 06/01/21 12:53 Urine Color Ptaience (Yellow) 06/01/21 Unknown Urine Turbidity Cloudy (Clear) 06/01/21 Unknown Urine pH 5.0 (5.0-7.0) 06/01/21 Unknown Ur Specific [place] 1.016 (1.003-1.030) 06/01/21 Unknown Urine Protein 100 mg/dl mg/dL (Negative) 06/01/21 Unknown Urine Glucose (UA) 50 mg/dL (Negative) 06/01/21 Unknown Urine Ketones Neg mg/dL (Negative) 06/01/21 Unknown Urine Blood Mod (Negative) 06/01/21 Unknown Urine Nitrite Neg (Negative) 06/01/21 Unknown Urine Bilirubin Neg (Negative) 06/01/21 Unknown Urine Urobilinogen < 2.0 mg/dL (<2.0) 06/01/21 Unknown Ur Leukocyte Esterase Lg (Negative) 06/01/21 Unknown Urine WBC (Auto) > 182.0 /HPF (0.0-6.0) H 06/01/21 Unknown Urine RBC (Auto) 24.0 /HPF (0.0-6.0) 06/01/21 Unknown U Epithel Cells (Auto) 3.0 /HPF (0-13.0) 06/01/21 Unknown Urine Bacteria (Auto) 1+ /HPF (Negative) 06/01/21 Unknown Urine WBC Clumps 3+ /HPF 06/01/21 Unknown Ur Transition Epith Cell 4 /HPF 06/01/21 Unknown Urine Mucus Few /HPF 06/01/21 Unknown Urine Osmolality 318 Mosm/kg 06/02/21 13:50 Urine Sodium 13 mmol/L 06/02/21 13:50 Complement C3 57 mg/dL (82-185) L 06/02/21 11:03 Complement C4 18 mg/dL (15-53) 06/02/21 11:03 Coronavirus (PCR) Negative (Negative) 06/03/21 08:45 Hepatitis A IgM Ab Non-reactive (NonReactive) 06/02/21 11:03 Hep Bs Antigen Non-reactive (Negative) 06/02/21 11:03 Hep B Core IgM Ab Non-reactive (NonReactive) 06/02/21 11:03 Hepatitis C Antibody Non-reactive (NonReactive) 06/02/21 11:03 Microbiology: Microbiology 06/01/21 12:53 Peripheral/Venous Blood Culture - Preliminary NO GROWTH AFTER 72 HOURS 06/01/21 12:53 Peripheral/Venous Blood Culture - Preliminary NO GROWTH AFTER 72 HOURS Pagan/IV: Voiding Method Toilet Active Medications - Current Medications Current Medications: Generic Name Dose Route Start Last Admin Trade Name Freq PRN Reason Stop Dose Admin Acetaminophen 650 mg 06/01/21 18:37 06/02/21 04:06 Acetaminophen 325 Mg Tab PO 650 mg Q4H PRN Administration Pain MILD(1-3)/Fever >100.5/AN Aspirin 81 mg 06/05/21 10:00 06/05/21 09:58 Aspirin 81 Mg Tab Chew PO Not Given QDAY DAVID Cinacalcet 90 mg 06/05/21 10:06/05/21 09:59 Cinacalcet 30 Mg Tab PO Not Given QDAY [facility] Clonidine HCl 0.3 mg 06/04/21 20:00 06/05/21 09:58 Clonidine 0.1 Mg Tab PO Not Given TID [facility] Heparin Sodium (Porcine) 5,000 unit 06/01/21 22:00 06/05/21 09:54 Heparin 5,000 Unit/1 Ml Vial SUB-Q 5,000 unit Q12HR DAVID Administration Hydromorphone HCl 0.5 mg 06/01/21 18:45 06/04/21 16:10 Hydromorphone 1 Mg/1 Ml Inj IV 0.5 mg Q3H PRN Administration Pain , Severe (7-10) Sodium Bicarbonate 150 meq/ 1,150 mls @ 125 mls/hr 06/04/21 11:00 06/05/21 09:54 Dextrose IV 125 mls/hr DIRECT [facility] Administration Ceftriaxone Sodium 2 gm in 100 mls @ 200 mls/hr 06/05/21 22:00 Rocephin/Ns 2 Gm/100 Ml IV 06/15/21 22:29 Q24H [facility] Protocol Insulin Human Isoph/Insulin Regular 10 unit 06/02/21 17:00 06/05/21 08:48 Insulin Nph/Regular 70/30 Inj SUB-Q 10 unit BIDDIAB [facility] Administration Insulin Human Lispro 0 unit 06/02/21 16:30 06/05/21 08:48 Insulin Lispro 100 Unit/Ml SUB-Q 8 unit ACHS [facility] Administration Protocol Multivitamins 1 each 06/05/21 10:00 06/05/21 09:59 Multivitamins ,Therapeutic Tab PO Not Given QDAY [facility] Multivitamins/Minerals 1 each 06/02/21 10:00 06/05/21 09:58 Calcium Carb/Vit D3/Minerals 600 Mg/800 Units Tab PO Not Given BID [facility] Ondansetron HCl 4 mg 06/02/21 12:24 06/04/21 00:58 Ondansetron 4 Mg/2 Ml Inj IV 4 mg Q4H PRN Administration Nausea And Vomiting Oxycodone/Acetaminophen 1 tab 06/01/21 18:37 06/01/21 22:56 Oxycodone /Acetaminophen 5-325mg Tab PO 1 tab Q6H PRN Administration Pain, Moderate (4-6) Prednisone 5 mg 06/02/21 10:00 06/05/21 09:58 Prednisone 5 Mg Tab PO Not Given QDAY [facility] Sodium Bicarbonate 650 mg 06/03/21 20:00 06/05/21 09:58 Sodium Bicarbonate 650 Mg Tab PO Not Given TID DAVID Sodium Chloride 10 ml 06/01/21 22:00 06/05/21 09:54 Sodium Chloride 0.9% 10 Ml Flush Syringe IV Not Given BID DAVID Sodium Chloride 10 ml 06/01/21 18:37 Sodium Chloride 0.9% 10 Ml Flush Syringe IV PRN PRN LINE FLUSH Tacrolimus 4 mg 06/05/21 10:00 06/05/21 09:59 Tacrolimus 1 Mg Cap PO Not Given QAM DAVID Tacrolimus 3 mg 06/04/21 18:00 06/04/21 18:33 Tacrolimus 1 Mg Cap PO Not Given QPM [facility] Nutrition/Malnutrition Assess - Dietary Evaluation Nutrition/Malnutrition Findings: Nutrition Notes Start: 06/04/21 09:14 Freq: Status: Active Protocol: Document 06/04/21 09:14 SHARON (Rec: 06/04/21 09:25 [facility] [id number]) Nutrition Notes Need for Assessment generated from: MD Order Initial or Follow up Assessment Current Diagnosis Acute Kidney Injury,CKD(stage I-IV),Diabetes,Hypertension Other Pertinent Diagnosis SIRS, UTI, Fever, s/p renal transplant (2017), bilat blindness Current Diet NPO Labs/Tests A1C 8.4 CO2 - 15 BUN 97 Cr 4.8 Mg 2.4 Pertinent Medications MVI + minerals, Prednisone, Na bicarb, NS at 75ml/hr, Tacrolimus Height 5 ft 4 in Weight 73.482 kg [place] Body Weight (kg) 59.09 BMI 27.8 Weight Status Overweight Subjective/Other Information RD consulted for malnutrition (based on MD dx of hypoalbuminemia). Pt with intractable N/V. CT of abd and pelvis revealed questionable mild thickening of descending and sigmoid colon liu. Per nephrology, no immediate need for renal biopsy or renal replacement therapy at this time. Burn Absent Trauma Absent GI Symptoms Nausea,Vomiting,Diarrhea Skin Integrity/Comment No skin breakdown noted Minimum of two criteria No #1 Nutrition Diagnosis Inadequate oral intake Etiology altered GI function As Evidenced by Signs and Symptoms pt NPO; c/o N/V/D Is patient on ventilator? No Is Patient Ambulatory and/or Out of Bed No REE-([facility]-confined to bed) [phone] Calculation Used for Recommendations Jimmy Huffman Additional Notes Pro needs 0.8-1.2g/k-88g/ day Fluid needs 1ml/kcal Nutrition Intervention Change Diet Order: Advance diet when medically feasible Goal #1 Diet advancement to meet nutrient needs Anticipated Discharge Needs: Renal/CHO-controlled diet Follow-Up By: 06/06/21 Additional Comments F/U: diet advancement, renal function
--- NOTE | 2021-06-05 14:08 | Progress Note ---
Assessment and Plan Cultures: Blood culture no growth so far Urine culture E coli A/P: 56-year-old man past medical history hypertension, renal transplant, di abetes now with #Acute sepsis: with fevers and leukocytosis. Secondary to below #Pyelonephritis in the renal transplant: Given immunosuppression and pyelo of the renal transplant would recommend 2 weeks IV antibiotics. #Immunocompromised host: on tracolimus and steroids #DM2: tight glycemic control for best outcomes. #MYCHAL: renally dose medications. 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 Joshua Deng MD [facility] ([facility]) O: [phone] F: [phone] Subjective Date of service: 06/05/21 Principal diagnosis: mychal Interval history: Afebrile, white count 10.2. No other issues at present. Objective - Exam Narrative Exam: Physical Exam: Constitutional: Alert, cooperative. No acute distress Head, Ears, Nose: Normocephalic, atraumatic. External ears, nose normal Eyes: Conjunctivae/corneas clear. No icterus. No ptosis. Neck: Supple, no meningeal signs Oral: dentition fair, no thrush Cardiovascular: S1, S2 normal. Respiratory: Good air entry, clear to auscultation bilaterally GI: Soft, non-tender; bowel sounds normal. No peritoneal signs. Musculoskeletal: No pedal edema, no cyanosis. Skin: No rash or abscess Hem/Lymphatic: No palpable cervical or supraclavicular nodes. No lymphangitis Psych: Mood ok. Affect normal Neurological: Awake, alert, oriented. No gross abnormality - Constitutional Vitals: Vital Signs Temp Pulse Resp BP Pulse Ox 98.1 F 79 18 173/36 96 06/05/21 08:23 06/05/21 08:23 06/05/21 08:23 06/05/21 08:23 06/05/21 08:27 Temperature -Last 24 Hours Temperature 98.1 F Temperature 98.6 F Temperature 98.3 F Temperature 98.7 F Temperature 98.2 F - Labs CBC & Chem 7: 06/05/21 04:14 06/05/21 04:14 Labs: Abnormal lab results 06/02/21 06/04/21 06/04/21 Range/Units 11:03 16:24 22:10 Hgb (11.8-15.2) gm/dl Plt Count (140-440) K/mm3 Seg Neuts % (Manual) (40.0-70.0) % Lymphocytes % (Manual) (13.4-35.0) % Seg Neutrophils # Man (1.8-7.7) K/mm3 Lymphocytes # (Manual) (1.2-5.4) K/mm3 Sodium (137-145) mmol/L Chloride (98-107) mmol/L Carbon Dioxide (22-30) mmol/L BUN (9-20) mg/dL Creatinine (0.8-1.3) mg/dL Glucose (75-100) mg/dL POC Glucose 319 H 256 H (70-105) mg/dL Alkaline Phosphatase (35-129) units/L Total Protein (6.3-8.2) g/dL Albumin (3.9-5) g/dL Complement C3 57 L (82-185) mg/dL 06/05/21 06/05/21 06/05/21 Range/Units 04:14 04:14 08:22 Hgb 11.4 L (11.8-15.2) gm/dl Plt Count 50 L (140-440) K/mm3 Seg Neuts % (Manual) 83.0 H (40.0-70.0) % Lymphocytes % (Manual) 2.0 L (13.4-35.0) % Seg Neutrophils # Man 8.5 H (1.8-7.7) K/mm3 Lymphocytes # (Manual) 0.2 L (1.2-5.4) K/mm3 Sodium 134 L (137-145) mmol/L Chloride 92.9 L (98-107) mmol/L Carbon Dioxide 19 L (22-30) mmol/L BUN 109 H (9-20) mg/dL Creatinine 4.7 H (0.8-1.3) mg/dL Glucose 385 H (75-100) mg/dL POC Glucose 495 H (70-105) mg/dL Alkaline Phosphatase 143 H (35-129) units/L Total Protein 5.1 L (6.3-8.2) g/dL Albumin 2.5 L (3.9-5) g/dL Complement C3 (82-185) mg/dL 06/05/21 Range/Units 11:32 Hgb (11.8-15.2) gm/dl Plt Count (140-440) K/mm3 Seg Neuts % (Manual) (40.0-70.0) % Lymphocytes % (Manual) (13.4-35.0) % Seg Neutrophils # Man (1.8-7.7) K/mm3 Lymphocytes # (Manual) (1.2-5.4) K/mm3 Sodium (137-145) mmol/L Chloride (98-107) mmol/L Carbon Dioxide (22-30) mmol/L BUN (9-20) mg/dL Creatinine (0.8-1.3) mg/dL Glucose (75-100) mg/dL POC Glucose 355 H (70-105) mg/dL Alkaline Phosphatase (35-129) units/L Total Protein (6.3-8.2) g/dL Albumin (3.9-5) g/dL Complement C3 (82-185) mg/dL
--- NOTE | 2021-06-05 14:18 | Ultrasound Report ---
US renal BILAT INDICATION / CLINICAL INFORMATION: evaluate transplanted kidney. COMPARISON: CT from 06/04/2021. FINDINGS: Right lower quadrant transplant kidney measures 11.6 cm. There is normal renal echogenicity with norm al cortical thickness. Mild hydronephrosis. No perinephric fluid collection. No solid renal mass. [place] kidneys both appear small with increased cortical echogenicity and cortical thinning, compatib le with chronic medical renal disease. No hydronephrosis or solid renal mass. IMPRESSION: Nonspecific mild hydronephrosis of the right lower quadrant transplant kidney. Otherwise, no signific ant sonographic abnormality. Findings of chronic medical renal disease within the [place] kidneys. No evidence of hydronephrosis. Signer Name: Fleiberto Ruano MD Signed: 06/05/2021 2:14 PM Workstation Name: [id number]
[2021-06-05 20:26] VITALS: BP 184/42
[2021-06-05] MEDS ORDERED: cefTRIAXone/NS 2 GM/100 ML 2 GM/100 ML BAG IV SCH (22:00)
[2021-06-06 06:17] LABS: ANA Screen, IFA Negative (Negative)
[2021-06-06 12:24] LABS: Myeloperoxidase Antibody <1.0 AI (<1.0)
== END 2021-06-05 21:28 | disposition short-term general hospital (02) | DRG 871 ==
LOC: ED 11:37 → 4A 15:00
PROVIDERS: ADMIT Internal Medicine; ATTEND Student in an Organized Health Care Education/Training Program
DX: A41.51 Sepsis due to Escherichia coli [E. coli] (principal); E43 Unspecified severe protein-calorie malnutrition; N17.0 Acute kidney failure with tubular necrosis; T86.10 Unspecified complication of kidney transplant; E87.1 Hypo-osmolality and hyponatremia; N12 Tubulo-interstitial nephritis, not specified as acute or chronic; Z20.822 Contact with and (suspected) exposure to COVID-19; E87.5 Hyperkalemia; N18.9 Chronic kidney disease, unspecified; E83.42 Hypomagnesemia; E83.51 Hypocalcemia; I12.9 Hypertensive chronic kidney disease with stage 1 through stage 4 chronic kidney disease, or unspecified chronic kidney disease; E11.22 Type 2 diabetes mellitus with diabetic chronic kidney disease; E87.6 Hypokalemia; Z68.27 Body mass index [BMI] 27.0-27.9, adult; D69.6 Thrombocytopenia, unspecified
CPT/HCPCS: 36415; 71045; 74022; 74176; 76770; 80048; 80053; 80074; 80076; 80197; 81001; 82140; 82533; 82962; 83036; 83520; 83690; 83735; 83935; 84300; 84484; 85007; 85025; 85027; 86021; 86038; 86160; 87040; 87076; 87086; 87186; G0378; J3490; Q0162; Q0177; Q9967; J0692; J0696; J1170; J1644; J1815; J2405; J3475; J7030; J7070; J7120; J7507; J7512; U0003